=== PATIENT | female | born 1985 | race Caucasian/White ===

== ENCOUNTER 2016-09-14 15:25 | Inpatient (IN) ==
--- NOTE | 2016-09-14 16:22 | Emergency Department Note ---
Disposition Clinical Impression: Chest pain Qualifiers: Chest pain type: unspecified Qualified Code(s): R07.9 - Chest pain, unspecified Depression Qualifiers: Depression Type: unspecified Qualified Code(s): F32.9 - Major depressive disorder, single episode, unspecified Disposition: Still a Patient Condition: Good Referrals: Kristen Lawler CNP [Primary Care Provider] - Forms: ED Satisfaction Letter Chest Pain HPI - General Chief Complaint: ED Chest Pain Stated Complaint: "I'm dying" CP Time Seen by Provider: 09/14/16 15:50 Source: patient Mode of arrival: ambulatory Limitations: no limitations Vital Signs Reviewed: Yes Nursing Notes Reviewed: Yes - History of Present Illness HPI Narrative: 31-year-old female comes in complaining of chest pain arm pain and some tingling since yesterday. Patient states she does have a family history she does smoke cigarettes. Patient states that she is not hypertensive not diabetic and no high cholesterol. Pt complaint: chest pain Onset (ago): [employer] Duration: intermittent Onset: during rest, during exertion Pain Location: substernal, left chest Severity scale (1-10): 3 Quality: tightness, aching Pain Radiation: LUE Improves with: nothing Worsens with: nothing Associated symptoms: Reports: nausea, other (Near syncope) - Related Data Previous Rx's Medication Instructions Recorded Acyclovir 1 appl TP 5XD #15 g 06/07/16 Acyclovir [Zovirax] 800 mg PO 5XD #35 tablet 06/07/16 Azithromycin [Azithromycin 6-Tab 250 mg PO DAILY #6 tab 06/07/16 Pack] Promethazine/Dextromethorphan 5 ml PO Q4H PRN #120 ml 06/07/16 [Promethazine-Dm Syrup] Benzonatate [Tessalon] 200 mg PO TID PRN #30 capsule 08/16/16 Ibuprofen [Motrin] 800 mg PO Q8HR PRN #30 tablet 08/16/16 Sulfamethoxazole/Trimeth DS 1 each PO BID #14 tablet 08/16/16 [Bactrim DS] Fluconazole [Diflucan] 150 mg PO DAILY #1 tab 08/27/16 Benzonatate [Tessalon] 200 mg PO TID PRN #20 capsule 09/01/16 Cefdinir [Omnicef] 300 mg PO BID 10 Days 09/01/16 Ibuprofen [Motrin] 800 mg PO Q8HR PRN #20 tablet 09/01/16 MetroNIDAZOLE [Flagyl] 500 mg PO BID #14 tablet 09/01/16 Hydralazine HCl 50 mg PO QID PRN 14 Days 09/14/16 Allergies Allergy/AdvReac Type Severity Reaction Status Date / Time No Known Allergies Allergy Verified 02/25/15 11:21 All systems ED: reviewed and negative except as stated. Constitutional: Denies: fever, chills, weakness, weight change Eyes: Denies: eye pain, eye discharge, vision change ENT ED: Denies: ear pain, throat pain, dental pain, hearing loss, epistaxis, congestion, dysphagia Cardiovascular: Reports: chest pain. Denies: palpitations, dyspnea on exertion , edema, syncope Respiratory: Denies: cough, dyspnea, wheezes, hemoptysis, stridor Gastrointestinal: Denies: abdominal pain, nausea, vomiting, diarrhea, constipation, hematemesis, melena, hematochezia Genitourinary: Denies: dysuria, frequency, hematuria, discharge Musculoskeletal: Reports: arthralgia. Denies: back pain, neck pain, myalgia Integumentary: Denies: rash, abrasion, lesions Neurological: Denies: headache, weakness, numbness, paresthesias, confusion, abnormal gait, vertigo Psychiatric: Denies: anxiety, depression, suicidal thoughts, homicidal thoughts , auditory hallucinations, visual hallucinations Endocrine: Denies: fatigue Hematological/Lymphatic: Denies: easy bleeding, easy bruising Allergic/Immunologic: Denies: facial swelling, urticaria Chest Pain PMH - Past Medical History Medical history: Reports: seizures Surgical history: Reports: non-contributory Psychiatric history: Reports: no psych history - Social History Smoking Status: Current every day smoker Alcohol use: Reports: occasionally Drug use: Reports: none Physical Exam - General Limitations: no limitations General appearance: alert - Head Head exam: atraumatic, normocephalic, normal inspection - Eye Eye exam: Present: normal appearance, PERRL, EOMI - ENT ENT exam: normal exam - Neck Neck exam: Present: normal inspection, full ROM, trachea midline - Chest Chest inspection: Present: normal inspection, symmetric chest wall rise - Respiratory Respiratory exam: Present: normal lung sounds bilaterally - Cardiovascular Cardiovascular exam: Present: regular rate, normal rhythm, normal heart sounds - Abdominal Exam Abdominal exam: Present: soft, Non-Tender. Absent: tenderness, distention, guarding, rebound, rigidity - Extremities Exam Extremities exam: Present: normal inspection, full ROM. Absent: tenderness, pedal edema - Expanded Lower Extremity Exam Neurovascular/Tendon exam: Absent: motor deficit, sensory deficit, tendon deficit Gait: observed and normal - Back Exam Back exam: Present: normal inspection, full ROM. Absent: tenderness - Neurological Exam Neurological exam: Present: alert, oriented X3 - Psychiatric Psychiatric exam: Present: normal affect, normal mood - Skin Skin exam: Present: warm, dry, intact, normal color Course - Reevaluation(s) Reevaluation #1: 31-year-old was discussing findings her EKG did show T-wave inversion in leads 3 and aVF. This is a change from her previous. Troponin and d-dimer were negative. I discussed observation admission and she declined that she wants to see psychiatry. Patient states she is depressed now and has thought about suicide. Time: 17:24 Vital Signs Temperature 97.5 F L 09/14/16 15:27 Pulse Rate 79 09/14/16 15:27 Respiratory Rate 16 09/14/16 15:27 Blood Pressure 112/75 09/14/16 15:27 O2 Sat by Pulse Oximetry 95 09/14/16 15:27 Temperature 97.5 F L 09/14/16 15:27 Pulse Rate 60 09/14/16 17:00 Respiratory Rate 18 09/14/16 17:00 Blood Pressure 107/57 09/14/16 17:00 O2 Sat by Pulse Oximetry 97 09/14/16 17:00 Oxygen Delivery Oxygen Delivery Room Air Chest Pain - Lab Data Result diagrams: 09/14/16 16:46 09/14/16 16:46 Lab Results 09/14/16 09/14/16 09/14/16 Range/Units 16:30 16:46 16:46 WBC (4.3-11.1) K/mcL RBC (3.82-4.97) M/mcL Hgb (11.5-15.4) g/dL Hct (35.3-44.9) % MCV (83.0-100.0) fL MCH (28.0-33.3) pg MCHC (31.6-35.5) g/dL RDW (11.5-14.5) % Plt Count (140-400) K/mcL MPV (9.4-12.4) fL Immature Gran % (0-4) % Seg Neutrophils % % Lymphocytes % % Monocytes % % Eosinophils % % Basophils % % Neutrophils # (1.6-8.9) K/mcL Lymphocytes # (0.6-4.6) K/mcL Monocytes # (0.0-1.3) K/mcL Eosinophils # (0.0-0.6) K/mcL Basophils # (0.0-0.2) K/mcL PT 11.1 (9.4-12.1) Seconds INR 1.0 APTT 31.4 (26.0-36.0) Seconds D-Dimer < 215 (0-500) ng/mLFEU Sodium (136-145) mEq/L Potassium (3.5-4.5) mEq/L Chloride (98-109) mEq/L Carbon Dioxide (19-29) mEq/L BUN (7-20) mg/dL Creatinine (0.57-1.11) mg/dL Est GFR ( Amer) (> 60) Est GFR (Non-Af Amer) (> 60) BUN/Creatinine Ratio (6-26) Glucose (70-99) mg/dL Calculated Osmolality (280-300) Calcium (8.6-10.8) mg/dL Troponin I (0-0.03) ng/mL B-Natriuretic Peptide 77 (0-100) pg/mL Urine Opiates Screen Negative (Idrzdi=381) ng/mL Ur Barbiturates Screen Negative (Gnaxxy=551) ng/mL Ur Phencyclidine Scrn Negative (Cutoff=25) ng/mL Ur Amphetamines Screen Negative (Ldxsmd=9616) ng/mL U Benzodiazepines Scrn Positive H (Rgalhu=343) ng/mL Urine Cocaine Screen Negative (Cutoff= 300) ng/mL U Marijuana (THC) Screen Negative (Cutoff = 50) ng/mL Ethyl Alcohol (0-10) mg/dL 09/14/16 09/14/16 09/14/16 Range/Units 16:46 16:46 16:46 WBC 4.9 (4.3-11.1) K/mcL RBC 3.96 (3.82-4.97) M/mcL Hgb 11.3 L (11.5-15.4) g/dL Hct 34.8 L (35.3-44.9) % MCV 87.9 (83.0-100.0) fL MCH 28.5 (28.0-33.3) pg MCHC 32.5 (31.6-35.5) g/dL RDW 14.7 H (11.5-14.5) % Plt Count 177 (140-400) K/mcL MPV 11.3 (9.4-12.4) fL Immature Gran % 0.2 (0-4) % Seg Neutrophils % 51.4 % Lymphocytes % 36.6 % Monocytes % 6.7 % Eosinophils % 4.9 % Basophils % 0.2 % Neutrophils # 2.5 (1.6-8.9) K/mcL Lymphocytes # 1.8 (0.6-4.6) K/mcL Monocytes # 0.3 (0.0-1.3) K/mcL Eosinophils # 0.2 (0.0-0.6) K/mcL Basophils # 0.0 (0.0-0.2) K/mcL PT (9.4-12.1) Seconds INR APTT (26.0-36.0) Seconds D-Dimer (0-500) ng/mLFEU Sodium 137 (136-145) mEq/L Potassium 4.1 (3.5-4.5) mEq/L Chloride 107 (98-109) mEq/L Carbon Dioxide 25 (19-29) mEq/L BUN 6 L (7-20) mg/dL Creatinine 0.85 (0.57-1.11) mg/dL Est GFR ( Amer) > 60 (> 60) Est GFR (Non-Af Amer) > 60 (> 60) BUN/Creatinine Ratio 7 (6-26) Glucose 118 H (70-99) mg/dL Calculated Osmolality 283 (280-300) Calcium 8.8 (8.6-10.8) mg/dL Troponin I 0.00 (0-0.03) ng/mL B-Natriuretic Peptide (0-100) pg/mL Urine Opiates Screen (Audhkd=227) ng/mL Ur Barbiturates Screen (Whjrme=525) ng/mL Ur Phencyclidine Scrn (Cutoff=25) ng/mL Ur Amphetamines Screen (Sxfgcl=3904) ng/mL U Benzodiazepines Scrn (Mydokj=151) ng/mL Urine Cocaine Screen (Cutoff= 300) ng/mL U Marijuana (THC) Screen (Cutoff = 50) ng/mL Ethyl Alcohol < 10 (0-10) mg/dL - Radiology Data Radiology results reviewed: Yes I reviewed the patient's radiology results. Chest X-Ray 09/14/16 16:03 IMPRESSION: Negative chest x-ray. No evidence of acute cardiopulmonary disease. D/ / Talon Reed MD / Talon Reed MD Interpreting Provider: Talon Reed MD - EKG Data EKG attestation: Yes I reviewed and interpreted this EKG. EKG shows normal: sinus rhythm Rate: normal Rhythm: NSR T wave inversions noted in: III, aVF Interpretation: other (New T-wave inversion in leads 3 and aVF) Heart Score - Score History: Moderately Suspicious EKG: Non Specific repolarisation Disturbance Age: Less than 45 Risk Factors: No risk factors known Troponin: Less than normal limit HEART Score Total: 2 S.B.A.R. - S.B.A.R. Recommendation: Recommendation based on pending studies, treatments, or consults S.B.A.R. Report Given to: Dr. Raymond Van S.B.A.RNathan Repor Time: 19:00
[2016-09-14 16:43] LABS: Amphetamine Screen,Urine Negative ng/mL (Cutoff=1000); Barbiturate Screen,Urine Negative ng/mL (Cutoff=200); Benzodiazepines Screen,Urine Positive ng/mL (Cutoff=200); Cannabinoid Screen,Urine Negative ng/mL (Cutoff = 50); Cocaine Screen,Urine Negative ng/mL (Cutoff= 300); Opiate Screen,Urine Negative ng/mL (Cutoff=300); Phencyclidine Screen,Urine Negative ng/mL (Cutoff=25)
[2016-09-14 16:56] LABS: Basophils % 0.2 %; Eosinophils # 0.2 K/mcL (0.0-0.6); Eosinophils % 4.9 %; Hematocrit 34.8 % (35.3-44.9); Hemoglobin 11.3 g/dL (11.5-15.4); Immature Granulocytes % 0.2 % (0-4); Lymphocytes # 1.8 K/mcL (0.6-4.6); Lymphocytes % 36.6 %; Mean Corpuscular HGB Conc 32.5 g/dL (31.6-35.5); Mean Corpuscular Hemoglobin 28.5 pg (28.0-33.3); Mean Corpuscular Volume 87.9 fL (83.0-100.0); Mean Platelet Volume 11.3 fL (9.4-12.4); Monocytes # 0.3 K/mcL (0.0-1.3); Monocytes % 6.7 %; Neutrophils # 2.5 K/mcL (1.6-8.9); Platelet Count 177 K/mcL (140-400); Red Blood Count 3.96 M/mcL (3.82-4.97); Red Cell Distribution Width 14.7 % (11.5-14.5); Segmented Neutrophils % 51.4 %
[2016-09-14 16:58] LABS: Prothrombin Time 11.1 Seconds (9.4-12.1)
[2016-09-14 17:01] LABS: Activated Partial Thrombo Time 31.4 Seconds (26.0-36.0)
[2016-09-14 17:06] LABS: BUN/Creatinine Ratio 7 (6-26); Blood Urea Nitrogen 6 mg/dL (7-20); Calcium 8.8 mg/dL (8.6-10.8); Carbon Dioxide 25 mEq/L (19-29); Chloride 107 mEq/L (98-109); D-Dimer < 215 ng/mLFEU (0-500); Glucose 118 mg/dL (70-99); Osmolality,Calculated 283 (280-300); Potassium 4.1 mEq/L (3.5-4.5); Sodium 137 mEq/L (136-145); eGFR For African Americans > 60 (> 60); eGFR For Non-African Americans > 60 (> 60)
[2016-09-14 18:07] LABS: Ethanol < 10 mg/dL (0-10)
--- NOTE | 2016-09-14 20:42 | Emergency Department Note ---
Disposition Clinical Impression: Suicidal ideation Chest pain Qualifiers: Chest pain type: unspecified Qualified Code(s): R07.9 - Chest pain, unspecified Depression Qualifiers: Depression Type: unspecified Qualified Code(s): F32.9 - Major depressive disorder, single episode, unspecified Disposition: Still a Patient Condition: Good Referrals: Kristen Lawler CNP [Primary Care Provider] - Forms: ED Satisfaction Letter Time of Disposition: 07:00 Chest Pain HPI - General Chief Complaint: ED Chest Pain Stated Complaint: "I'm dying" CP Time Seen by Provider: 09/14/16 15:50 Source: patient Mode of arrival: ambulatory Limitations: no limitations Vital Signs Reviewed: Yes Nursing Notes Reviewed: Yes - History of Present Illness Pain Location: substernal, left chest Severity scale (1-10): 3 Quality: tightness, aching Improves with: nothing Worsens with: nothing Associated symptoms: Reports: nausea, other (Near syncope) - Related Data Previous Rx's Medication Instructions Recorded Acyclovir 1 appl TP 5XD #15 g 06/07/16 Acyclovir [Zovirax] 800 mg PO 5XD #35 tablet 06/07/16 Azithromycin [Azithromycin 6-Tab 250 mg PO DAILY #6 tab 06/07/16 Pack] Promethazine/Dextromethorphan 5 ml PO Q4H PRN #120 ml 06/07/16 [Promethazine-Dm Syrup] Benzonatate [Tessalon] 200 mg PO TID PRN #30 capsule 08/16/16 Ibuprofen [Motrin] 800 mg PO Q8HR PRN #30 tablet 08/16/16 Sulfamethoxazole/Trimeth DS 1 each PO BID #14 tablet 08/16/16 [Bactrim DS] Fluconazole [Diflucan] 150 mg PO DAILY #1 tab 08/27/16 Benzonatate [Tessalon] 200 mg PO TID PRN #20 capsule 09/01/16 Cefdinir [Omnicef] 300 mg PO BID 10 Days 09/01/16 Ibuprofen [Motrin] 800 mg PO Q8HR PRN #20 tablet 09/01/16 MetroNIDAZOLE [Flagyl] 500 mg PO BID #14 tablet 09/01/16 Hydralazine HCl 50 mg PO QID PRN 14 Days 09/14/16 Allergies Allergy/AdvReac Type Severity Reaction Status Date / Time No Known Allergies Allergy Verified 02/25/15 11:21 Constitutional: Denies: fever, chills, weakness, weight change Eyes: Denies: eye pain, eye discharge, vision change ENT ED: Denies: ear pain, throat pain, dental pain, hearing loss, epistaxis, congestion, dysphagia Cardiovascular: Reports: chest pain. Denies: palpitations, dyspnea on exertion , edema, syncope Respiratory: Denies: cough, dyspnea, wheezes, hemoptysis, stridor Gastrointestinal: Denies: abdominal pain, nausea, vomiting, diarrhea, constipation, hematemesis, melena, hematochezia Genitourinary: Denies: dysuria, frequency, hematuria, discharge Musculoskeletal: Reports: arthralgia. Denies: back pain, neck pain, myalgia Integumentary: Denies: rash, abrasion, lesions Neurological: Denies: headache, weakness, numbness, paresthesias, confusion, abnormal gait, vertigo Psychiatric: Denies: anxiety, depression, suicidal thoughts, homicidal thoughts , auditory hallucinations, visual hallucinations Endocrine: Denies: fatigue Hematological/Lymphatic: Denies: easy bleeding, easy bruising Allergic/Immunologic: Denies: facial swelling, urticaria Chest Pain PMH - Past Medical History Medical history: Reports: seizures Surgical history: Reports: non-contributory Psychiatric history: Reports: no psych history - Social History Smoking Status: Current every day smoker Alcohol use: Reports: occasionally Drug use: Reports: none Physical Exam - General Limitations: no limitations General appearance: alert - Head Head exam: atraumatic - Eye Eye exam: Present: normal appearance, PERRL, EOMI - ENT ENT exam: mucous membranes moist - Neck Neck exam: Present: normal inspection, full ROM, trachea midline - Respiratory Respiratory exam: Present: normal lung sounds bilaterally - Cardiovascular Cardiovascular exam: Present: regular rate, normal rhythm, normal heart sounds - Extremities Exam Extremities exam: Present: normal inspection, full ROM. Absent: pedal edema - Neurological Exam Neurological exam: Present: alert, oriented X3 - Psychiatric Psychiatric exam: Present: normal affect, normal mood - Skin Skin exam: Present: warm, dry, intact, normal color Course Course Narrative: Patient was a signout from the day physician, Dr. Reyes, please see his note for any additional details. Patient is a 31-year-old female with past medical history of anxiety, she presented today due to chest pain or shortness of breath. She had an EKG that showed NSR with inverted T waves in leads 3, aVF that are new for the patient. Otherwise, no acute ST elevation or depression. CBC and BMP not concerning. Troponin negative. Chest x-ray negative for any acute cardiopulmonary process. She was offered admission by Dr. Reyes for observation but declined at that time. She then stated that she was suicidal and she thought that this could be due to her "previous medical illnesses. " She has requested to be seen by psychiatry. I reassessed the patient, she is very anxious on exam, has tangential thoughts, cannot stay focused, states that she does not any chest pain or shortness of breath right now but she does have episodic chest pain or shortness of breath and associated numbness and tingling around her mouth and face, feels very anxious when this happens, feels like she is going to . She thinks that it might be due to to her anxiety. When asked if she is suicidal, she will answer the question for me but does admit that she felt earlier that she was suicidal. She does also admit that earlier she declined admission for observation. We will obtain a troponin, since it has been 4 hours past the original troponin. If negative, will have psychiatry evaluate. Patient is not safe going home due to reports of suicidal ideation. Heart regular rate and rhythm, leg exam clear to auscultation. 23:58 seconds troponin negative. Patient has been evaluated by the psychiatric team. They will work on placement due to patient's current anxiety and SI. WIll give ativan per patient request. Waiting on placement. [facility] is trying to place at [facility] due to no beds in Chest X-Ray 09/14/16 16:03 IMPRESSION: Negative chest x-ray. No evidence of acute cardiopulmonary disease. D/ / Talon Reed MD / Talon Reed MD Interpreting Provider: Talon Reed MD Vital Signs Temperature 97.5 F L 09/14/16 15:27 Pulse Rate 79 09/14/16 15:27 Respiratory Rate 16 09/14/16 15:27 Blood Pressure 112/75 09/14/16 15:27 O2 Sat by Pulse Oximetry 95 09/14/16 15:27 Temperature 97.5 F L 09/15/16 01:53 Pulse Rate 59 09/15/16 01:53 Respiratory Rate 16 09/15/16 01:53 Blood Pressure 106/70 09/15/16 01:53 O2 Sat by Pulse Oximetry 96 09/15/16 01:53 Oxygen Delivery Oxygen Delivery Room Air Chest Pain - MDM Narrative Medical decision making narrative: Patient was a signout from the day physician, Dr. Reyes, please see his note for any additional details. Patient is a 31-year-old female with past medical history of anxiety, she presented today due to chest pain or shortness of breath. She had an EKG that showed NSR with inverted T waves in leads 3, aVF that are new for the patient. Otherwise, no acute ST elevation or depression. CBC and BMP not concerning. Troponin negative. Chest x-ray negative for any acute cardiopulmonary process. She was offered admission by Dr. Reyes for observation but declined at that time. She then stated that she was suicidal and she thought that this could be due to her "previous medical illnesses. " She has requested to be seen by psychiatry. I reassessed the patient, she is very anxious on exam, has tangential thoughts, cannot stay focused, states that she does not any chest pain or shortness of breath right now but she does have episodic chest pain or shortness of breath and associated numbness and tingling around her mouth and face, feels very anxious when this happens, feels like she is going to . She thinks that it might be due to to her anxiety. When asked if she is suicidal, she will answer the question for me but does admit that she felt earlier that she was suicidal. She does also admit that earlier she declined admission for observation. We will obtain a troponin, since it has been 4 hours past the original troponin. If negative, will have psychiatry evaluate. Patient is not safe going home due to reports of suicidal ideation. Heart regular rate and rhythm, leg exam clear to auscultation. 23:58 seconds troponin negative. Patient has been evaluated by the psychiatric team. They will work on placement due to patient's current anxiety and SI. WIll give ativan per patient request. Waiting on placement. [facility] is trying to place at [facility] due to no beds in 1A - Medical Records Medical records reviewed: Yes I reviewed the patient's medical records. - Lab Data Lab results reviewed: Yes I reviewed the patient's lab results. Result diagrams: 09/14/16 16:46 09/14/16 16:46 Lab Results 09/14/16 09/14/16 09/14/16 Range/Units 16:30 16:46 16:46 WBC (4.3-11.1) K/mcL RBC (3.82-4.97) M/mcL Hgb (11.5-15.4) g/dL Hct (35.3-44.9) % MCV (83.0-100.0) fL MCH (28.0-33.3) pg MCHC (31.6-35.5) g/dL RDW (11.5-14.5) % Plt Count (140-400) K/mcL MPV (9.4-12.4) fL Immature Gran % (0-4) % Seg Neutrophils % % Lymphocytes % % Monocytes % % Eosinophils % % Basophils % % Neutrophils # (1.6-8.9) K/mcL Lymphocytes # (0.6-4.6) K/mcL Monocytes # (0.0-1.3) K/mcL Eosinophils # (0.0-0.6) K/mcL Basophils # (0.0-0.2) K/mcL PT 11.1 (9.4-12.1) Seconds INR 1.0 APTT 31.4 (26.0-36.0) Seconds D-Dimer < 215 (0-500) ng/mLFEU Sodium (136-145) mEq/L Potassium (3.5-4.5) mEq/L Chloride (98-109) mEq/L Carbon Dioxide (19-29) mEq/L BUN (7-20) mg/dL Creatinine (0.57-1.11) mg/dL Est GFR ( Amer) (> 60) Est GFR (Non-Af Amer) (> 60) BUN/Creatinine Ratio (6-26) Glucose (70-99) mg/dL Calculated Osmolality (280-300) Calcium (8.6-10.8) mg/dL Troponin I (0-0.03) ng/mL B-Natriuretic Peptide 77 (0-100) pg/mL Urine Opiates Screen Negative (Eqkjyh=822) ng/mL Ur Barbiturates Screen Negative (Tnabow=869) ng/mL Ur Phencyclidine Scrn Negative (Cutoff=25) ng/mL Ur Amphetamines Screen Negative (Cxhzjo=2813) ng/mL U Benzodiazepines Scrn Positive H (Svywys=082) ng/mL Urine Cocaine Screen Negative (Cutoff= 300) ng/mL U Marijuana (THC) Screen Negative (Cutoff = 50) ng/mL Ethyl Alcohol (0-10) mg/dL 09/14/16 09/14/16 09/14/16 Range/Units 16:46 16:46 16:46 WBC 4.9 (4.3-11.1) K/mcL RBC 3.96 (3.82-4.97) M/mcL Hgb 11.3 L (11.5-15.4) g/dL Hct 34.8 L (35.3-44.9) % MCV 87.9 (83.0-100.0) fL MCH 28.5 (28.0-33.3) pg MCHC 32.5 (31.6-35.5) g/dL RDW 14.7 H (11.5-14.5) % Plt Count 177 (140-400) K/mcL MPV 11.3 (9.4-12.4) fL Immature Gran % 0.2 (0-4) % Seg Neutrophils % 51.4 % Lymphocytes % 36.6 % Monocytes % 6.7 % Eosinophils % 4.9 % Basophils % 0.2 % Neutrophils # 2.5 (1.6-8.9) K/mcL Lymphocytes # 1.8 (0.6-4.6) K/mcL Monocytes # 0.3 (0.0-1.3) K/mcL Eosinophils # 0.2 (0.0-0.6) K/mcL Basophils # 0.0 (0.0-0.2) K/mcL PT (9.4-12.1) Seconds INR APTT (26.0-36.0) Seconds D-Dimer (0-500) ng/mLFEU Sodium 137 (136-145) mEq/L Potassium 4.1 (3.5-4.5) mEq/L Chloride 107 (98-109) mEq/L Carbon Dioxide 25 (19-29) mEq/L BUN 6 L (7-20) mg/dL Creatinine 0.85 (0.57-1.11) mg/dL Est GFR ( Amer) > 60 (> 60) Est GFR (Non-Af Amer) > 60 (> 60) BUN/Creatinine Ratio 7 (6-26) Glucose 118 H (70-99) mg/dL Calculated Osmolality 283 (280-300) Calcium 8.8 (8.6-10.8) mg/dL Troponin I 0.00 (0-0.03) ng/mL B-Natriuretic Peptide (0-100) pg/mL Urine Opiates Screen (Etatpp=239) ng/mL Ur Barbiturates Screen (Bgvcld=902) ng/mL Ur Phencyclidine Scrn (Cutoff=25) ng/mL Ur Amphetamines Screen (Qygeic=8036) ng/mL U Benzodiazepines Scrn (Lyqzva=197) ng/mL Urine Cocaine Screen (Cutoff= 300) ng/mL U Marijuana (THC) Screen (Cutoff = 50) ng/mL Ethyl Alcohol < 10 (0-10) mg/dL 09/14/ Range/Units 21:01 WBC (4.3-11.1) K/mcL RBC (3.82-4.97) M/mcL Hgb (11.5-15.4) g/dL Hct (35.3-44.9) % MCV (83.0-100.0) fL MCH (28.0-33.3) pg MCHC (31.6-35.5) g/dL RDW (11.5-14.5) % Plt Count (140-400) K/mcL MPV (9.4-12.4) fL Immature Gran % (0-4) % Seg Neutrophils % % Lymphocytes % % Monocytes % % Eosinophils % % Basophils % % Neutrophils # (1.6-8.9) K/mcL Lymphocytes # (0.6-4.6) K/mcL Monocytes # (0.0-1.3) K/mcL Eosinophils # (0.0-0.6) K/mcL Basophils # (0.0-0.2) K/mcL PT (9.4-12.1) Seconds INR APTT (26.0-36.0) Seconds D-Dimer (0-500) ng/mLFEU Sodium (136-145) mEq/L Potassium (3.5-4.5) mEq/L Chloride (98-109) mEq/L Carbon Dioxide (19-29) mEq/L BUN (7-20) mg/dL Creatinine (0.57-1.11) mg/dL Est GFR ( Amer) (> 60) Est GFR (Non-Af Amer) (> 60) BUN/Creatinine Ratio (6-26) Glucose (70-99) mg/dL Calculated Osmolality (280-300) Calcium (8.6-10.8) mg/dL Troponin I 0.00 (0-0.03) ng/mL B-Natriuretic Peptide (0-100) pg/mL Urine Opiates Screen (Deoivl=921) ng/mL Ur Barbiturates Screen (Hxzezj=956) ng/mL Ur Phencyclidine Scrn (Cutoff=25) ng/mL Ur Amphetamines Screen (Mupeyf=5187) ng/mL U Benzodiazepines Scrn (Qnqqnb=916) ng/mL Urine Cocaine Screen (Cutoff= 300) ng/mL U Marijuana (THC) Screen (Cutoff = 50) ng/mL Ethyl Alcohol (0-10) mg/dL - Radiology Data Radiology results reviewed: Yes I reviewed the patient's radiology results. Chest X-Ray 09/14/16 16:03 IMPRESSION: Negative chest x-ray. No evidence of acute cardiopulmonary disease. D/ / Talon Reed MD / Talon Reed MD Interpreting Provider: Talon Reed MD - EKG Data EKG attestation: Yes I reviewed and interpreted this EKG. S.B.A.R. - S.B.A.RNathan Situation: Demographics, MOA Background: Presenting Complaint, Relevant PMH, Meds, & Allergies Assessment: Vital Signs, Course and respsone to treatment, Exam Concerns, Patient/Family Expectation, Pertinant Lab Results, Outstanding Labs Recommendation: Barrier(s) to disposition, Recommendation based on pending studies, treatments, or consults S.B.A.RNathan Report Given to: Dr. Edis Garcia Repor Time: 07:00 Attestation Statement - Attestation Attestation: I personally interviewed and examined this patient and my medical decision- making was reviewed with the ED Resident Physician, Dr. Oneill. I agree with the documented findings, disposition and treatment plan as described except to the extent set forth below. Patient is a 31-year-old white female who presented to the emergency department on the shift prior was a sign out by Dr. Reyes for chest pain and suicidal ideation. Patient had a negative workup with one negative troponin prior to our taking over the case and was awaiting consult by [facility]. The psych nurse came with concern as the patient was complaining of ongoing chest pain while she was starting to do her evaluation. Upon review of the original document by Dr. Reyes says that he offered her admission and at the time had refused and this was followed by her complaints of suicidal ideation. Patient states that she has been very anxious she is hyperventilating at bedside she is having trouble focusing on physical complaints and currently does not reply to being asked about whether or not she is feeling suicidal. EKG was repeated which showed no acute change compared to initial. We decided to repeat a troponin as patient is very low risk for ACS and will rule her out with a second troponin evaluation. Follow-up troponin was negative. Repeat EKG showed normal sinus rhythm to sinus bradycardia at [address] or T-wave changes are appreciated. [facility] was able to do a complete and assessment and plans to admit the patient for further evaluation and treatment of suicidal ideation. Patient remains hemodynamically stable at this time and on reevaluation she denies any current chest pain or discomfort.
[2016-09-14] MEDS ORDERED: *HR* LORazepam 1 MG TABLET PO ONE (23:39)
[2016-09-15] MEDS ORDERED: *HR* LORazepam 1 MG TABLET PO ONE ×2 (07:39→15:21)
--- NOTE | 2016-09-15 07:43 | Emergency Department Note ---
Disposition Clinical Impression: Suicidal ideation Chest pain Qualifiers: Chest pain type: unspecified Qualified Code(s): R07.9 - Chest pain, unspecified Depression Qualifiers: Depression Type: unspecified Qualified Code(s): F32.9 - Major depressive disorder, single episode, unspecified Disposition: Transfer Psychiatric Hosp Condition: Good Referrals: Kristen Lawler CNP [Primary Care Provider] - Forms: ED Satisfaction Letter General Adult HPI - General Chief complaint: ED Chest Pain Stated complaint: "I'm dying" CP Time Seen by Provider: 09/14/16 15:50 Source: patient Mode of arrival: ambulatory Limitations: no limitations Nursing Notes Reviewed: Yes Vital Signs Reviewed: Yes - History of Present Illness Pain Scale: 3 - Related Data Previous Rx's Medication Instructions Recorded Acyclovir 1 appl TP 5XD #15 g 06/07/16 Acyclovir [Zovirax] 800 mg PO 5XD #35 tablet 06/07/16 Azithromycin [Azithromycin 6-Tab 250 mg PO DAILY #6 tab 06/07/16 Pack] Promethazine/Dextromethorphan 5 ml PO Q4H PRN #120 ml 06/07/16 [Promethazine-Dm Syrup] Benzonatate [Tessalon] 200 mg PO TID PRN #30 capsule 08/16/16 Ibuprofen [Motrin] 800 mg PO Q8HR PRN #30 tablet 08/16/16 Sulfamethoxazole/Trimeth DS 1 each PO BID #14 tablet 08/16/16 [Bactrim DS] Fluconazole [Diflucan] 150 mg PO DAILY #1 tab 08/27/16 Benzonatate [Tessalon] 200 mg PO TID PRN #20 capsule 09/01/16 Cefdinir [Omnicef] 300 mg PO BID 10 Days 09/01/16 Ibuprofen [Motrin] 800 mg PO Q8HR PRN #20 tablet 09/01/16 MetroNIDAZOLE [Flagyl] 500 mg PO BID #14 tablet 09/01/16 Hydralazine HCl 50 mg PO QID PRN 14 Days 09/14/16 Allergies Allergy/AdvReac Type Severity Reaction Status Date / Time No Known Allergies Allergy Verified 02/25/15 11:21 Constitutional: Denies: fever, chills, weakness, weight change Eyes: Denies: eye pain, eye discharge, vision change ENT ED: Denies: ear pain, throat pain, dental pain, hearing loss, epistaxis, congestion, dysphagia Cardiovascular: Reports: chest pain. Denies: palpitations, dyspnea on exertion , edema, syncope Respiratory: Denies: cough, dyspnea, wheezes, hemoptysis, stridor Gastrointestinal: Denies: abdominal pain, nausea, vomiting, diarrhea, constipation, hematemesis, melena, hematochezia Genitourinary: Denies: dysuria, frequency, hematuria, discharge Musculoskeletal: Reports: arthralgia. Denies: back pain, neck pain, myalgia Integumentary: Denies: rash, abrasion, lesions Neurological: Denies: headache, weakness, numbness, paresthesias, confusion, abnormal gait, vertigo Psychiatric: Denies: anxiety, depression, suicidal thoughts, homicidal thoughts , auditory hallucinations, visual hallucinations Endocrine: Denies: fatigue Hematological/Lymphatic: Denies: easy bleeding, easy bruising Allergic/Immunologic: Denies: facial swelling, urticaria Past Medical History - Past Medical History Medical history: Reports: seizures Surgical history: Reports: non-contributory Psychiatric history: Reports: no psych history - Social History Smoking Status: Current every day smoker Smokeless Tobacco Status: No Alcohol use: Reports: occasionally Drug use: Reports: none Physical Exam - General Limitations: no limitations General appearance: alert Course Vital Signs Temperature 97.5 F L 09/14/16 15:27 Pulse Rate 79 09/14/16 15:27 Respiratory Rate 16 09/14/16 15:27 Blood Pressure 112/75 09/14/16 15:27 O2 Sat by Pulse Oximetry 95 09/14/16 15:27 Temperature 97.5 F L 09/15/16 01:53 Pulse Rate 60 09/15/16 13:54 Respiratory Rate 22 09/15/16 13:54 Blood Pressure 104/61 09/15/16 13:54 O2 Sat by Pulse Oximetry 97 09/15/16 13:54 Oxygen Delivery Oxygen Delivery Room Air Medical Decision Making - MDM Narrative Medical decision making narrative: I examined this patient and my medical decision-making was reviewed with the MACHINERY ENGINEER/PA/Advanced Practice Nurse/Resident Physician. I agree with the documented findings, disposition and treatment plan as described except to the extent set forth below. Patient was signed out from the evening ER physician Dr. Raymond Van, patient's been cooperative here. Has been advised by [facility], they are waiting placement. We ordered her breakfast this morning she has been cooperative so far. Told if she needs to let us know. She is under a 72 hour hold. Is awaiting transfer admission. 1525 hrs.: Patient asked for some more Ativan sorted out. [facility] has agreed to accept her for admission. - Lab Data Result diagrams: 09/14/16 16:46 09/14/16 16:46 Lab Results 09/14/16 09/14/16 09/14/16 Range/Units 16:30 16:46 16:46 WBC (4.3-11.1) K/mcL RBC (3.82-4.97) M/mcL Hgb (11.5-15.4) g/dL Hct (35.3-44.9) % MCV (83.0-100.0) fL MCH (28.0-33.3) pg MCHC (31.6-35.5) g/dL RDW (11.5-14.5) % Plt Count (140-400) K/mcL MPV (9.4-12.4) fL Immature Gran % (0-4) % Seg Neutrophils % % Lymphocytes % % Monocytes % % Eosinophils % % Basophils % % Neutrophils # (1.6-8.9) K/mcL Lymphocytes # (0.6-4.6) K/mcL Monocytes # (0.0-1.3) K/mcL Eosinophils # (0.0-0.6) K/mcL Basophils # (0.0-0.2) K/mcL PT 11.1 (9.4-12.1) Seconds INR 1.0 APTT 31.4 (26.0-36.0) Seconds D-Dimer < 215 (0-500) ng/mLFEU Sodium (136-145) mEq/L Potassium (3.5-4.5) mEq/L Chloride (98-109) mEq/L Carbon Dioxide (19-29) mEq/L BUN (7-20) mg/dL Creatinine (0.57-1.11) mg/dL Est GFR ( Amer) (> 60) Est GFR (Non-Af Amer) (> 60) BUN/Creatinine Ratio (6-26) Glucose (70-99) mg/dL Calculated Osmolality (280-300) Calcium (8.6-10.8) mg/dL Troponin I (0-0.03) ng/mL B-Natriuretic Peptide 77 (0-100) pg/mL Urine Opiates Screen Negative (Qjldtc=230) ng/mL Ur Barbiturates Screen Negative (Lzuout=973) ng/mL Ur Phencyclidine Scrn Negative (Cutoff=25) ng/mL Ur Amphetamines Screen Negative (Rznkoh=7972) ng/mL U Benzodiazepines Scrn Positive H (Dduzre=806) ng/mL Urine Cocaine Screen Negative (Cutoff= 300) ng/mL U Marijuana (THC) Screen Negative (Cutoff = 50) ng/mL Ethyl Alcohol (0-10) mg/dL 09/14/16 09/14/16 09/14/16 Range/Units 16:46 16:46 16:46 WBC 4.9 (4.3-11.1) K/mcL RBC 3.96 (3.82-4.97) M/mcL Hgb 11.3 L (11.5-15.4) g/dL Hct 34.8 L (35.3-44.9) % MCV 87.9 (83.0-100.0) fL MCH 28.5 (28.0-33.3) pg MCHC 32.5 (31.6-35.5) g/dL RDW 14.7 H (11.5-14.5) % Plt Count 177 (140-400) K/mcL MPV 11.3 (9.4-12.4) fL Immature Gran % 0.2 (0-4) % Seg Neutrophils % 51.4 % Lymphocytes % 36.6 % Monocytes % 6.7 % Eosinophils % 4.9 % Basophils % 0.2 % Neutrophils # 2.5 (1.6-8.9) K/mcL Lymphocytes # 1.8 (0.6-4.6) K/mcL Monocytes # 0.3 (0.0-1.3) K/mcL Eosinophils # 0.2 (0.0-0.6) K/mcL Basophils # 0.0 (0.0-0.2) K/mcL PT (9.4-12.1) Seconds INR APTT (26.0-36.0) Seconds D-Dimer (0-500) ng/mLFEU Sodium 137 (136-145) mEq/L Potassium 4.1 (3.5-4.5) mEq/L Chloride 107 (98-109) mEq/L Carbon Dioxide 25 (19-29) mEq/L BUN 6 L (7-20) mg/dL Creatinine 0.85 (0.57-1.11) mg/dL Est GFR ( Amer) > 60 (> 60) Est GFR (Non-Af Amer) > 60 (> 60) BUN/Creatinine Ratio 7 (6-26) Glucose 118 H (70-99) mg/dL Calculated Osmolality 283 (280-300) Calcium 8.8 (8.6-10.8) mg/dL Troponin I 0.00 (0-0.03) ng/mL B-Natriuretic Peptide (0-100) pg/mL Urine Opiates Screen (Hepttr=635) ng/mL Ur Barbiturates Screen (Tqcdle=990) ng/mL Ur Phencyclidine Scrn (Cutoff=25) ng/mL Ur Amphetamines Screen (Ydpeqi=5235) ng/mL U Benzodiazepines Scrn (Wlhdfm=315) ng/mL Urine Cocaine Screen (Cutoff= 300) ng/mL U Marijuana (THC) Screen (Cutoff = 50) ng/mL Ethyl Alcohol < 10 (0-10) mg/dL 09/14/16 Range/Units 21:01 WBC (4.3-11.1) K/mcL RBC (3.82-4.97) M/mcL Hgb (11.5-15.4) g/dL Hct (35.3-44.9) % MCV (83.0-100.0) fL MCH (28.0-33.3) pg MCHC (31.6-35.5) g/dL RDW (11.5-14.5) % Plt Count (140-400) K/mcL MPV (9.4-12.4) fL Immature Gran % (0-4) % Seg Neutrophils % % Lymphocytes % % Monocytes % % Eosinophils % % Basophils % % Neutrophils # (1.6-8.9) K/mcL Lymphocytes # (0.6-4.6) K/mcL Monocytes # (0.0-1.3) K/mcL Eosinophils # (0.0-0.6) K/mcL Basophils # (0.0-0.2) K/mcL PT (9.4-12.1) Seconds INR APTT (26.0-36.0) Seconds D-Dimer (0-500) ng/mLFEU Sodium (136-145) mEq/L Potassium (3.5-4.5) mEq/L Chloride (98-109) mEq/L Carbon Dioxide (19-29) mEq/L BUN (7-20) mg/dL Creatinine (0.57-1.11) mg/dL Est GFR ( Amer) (> 60) Est GFR (Non-Af Amer) (> 60) BUN/Creatinine Ratio (6-26) Glucose (70-99) mg/dL Calculated Osmolality (280-300) Calcium (8.6-10.8) mg/dL Troponin I 0.00 (0-0.03) ng/mL B-Natriuretic Peptide (0-100) pg/mL Urine Opiates Screen (Zporji=379) ng/mL Ur Barbiturates Screen (Nntevh=977) ng/mL Ur Phencyclidine Scrn (Cutoff=25) ng/mL Ur Amphetamines Screen (Awhkye=0562) ng/mL U Benzodiazepines Scrn (Jwszru=669) ng/mL Urine Cocaine Screen (Cutoff= 300) ng/mL U Marijuana (THC) Screen (Cutoff = 50) ng/mL Ethyl Alcohol (0-10) mg/dL
--- NOTE | 2016-09-15 22:07 | Electrocardiograph Report ---
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
--- NOTE | 2016-09-15 22:11 | Electrocardiograph Report ---
[facility] Test Date: 2016-09-15 Pat Name: Estelle Worthy Department: 104 Room: 1A51 Gender: F Medication Reconciliation Technician: NICKY : 1985 Requested By: Ry Oneill Order Number: [id number] Reading MD: Rafal Arriaza MD Measurements Intervals [place] Rate: 52 P: 56 [place]: 137 QRS: 61 QRSD: 88 T: 30 QT: 490 QTc: 469 Interpretive Statements SINUS BRADYCARDIA Electronically Signed On 09-15-2016 22:09:26 EDT by Rafal Arriaza MD
[2016-09-15] MEDS ORDERED: hydrOXYzine pamoate 25 MG CAPSULE PO PRN (22:42)
[2016-09-15] MEDS ORDERED: *HR* LORazepam 2 MG/ML VIAL IM PRN (22:42)
[2016-09-15] MEDS ORDERED: traZODone 50 MG TABLET PO PRN (22:42)
[2016-09-15] MEDS ORDERED: MOM Conc 10 ML UD.LIQ PO PRN (22:42)
[2016-09-15] MEDS ORDERED: Haloperidol Lactate 5 MG/ML VIAL IM PRN (22:42)
[2016-09-15] MEDS ORDERED: Mag Hydrox/Al Hydrox/Simeth 30 ML UDC PO PRN (22:42)
[2016-09-16] MEDS: Acetaminophen 325 MG TABLET PO PRN ×2 (01:52→15:18)
[2016-09-16] MEDS: Nicotine 2 MG GUM BC PRN ×4 (01:56→18:27)
[2016-09-16] MEDS: *HR* LORazepam 1 MG TABLET PO PRN ×3 (08:51→23:57)
--- NOTE | 2016-09-16 11:05 | Psychiatry History & Physical ---
Date of Encounter: 09/16/16 Time of Encounter: 10:59 History of Present Illness Patient Stated Chief Complaint: Suicidal ideation Medicare Admission Attestation: For traditional Medicare patients the provided hospital inpatient services are reasonable and necessary and in the case of services not specified as inpatient -only under 42 CFR 419.22 (n), that they are appropriately provided as inpatient services in accordance 42 CFR 412.3. For Critical Access Hospital the patient may reasonably be expected to be discharged or transferred to a hospital within 96 hours after admission to the Critical Access Hospital. Admitted From: Emergency Dept History of Present Illness: Ms. Worthy is a 31 year old female admitted from the emergency room for evaluation of suicidal ideation. Patient presentation to the emergency department was confusing, her chief complaint was chest pain and she was evaluated for chest pain by the EKG and blood work and at some points the plan was to admit her to medical floor, then the presentation changed to suicidal ideation and patient was very vague about any crisis or precipitating factor for having suicidal ideation. Patient has been hospitalized in this unit most recently in February 2009 for diagnosis of mood disorder NOS suicidal ideation and opiate dependence. Patient did not follow-up with mental health's for the past 2 or 3 years and has been using medication prescribed by the family physician including Celexa and Ambien. 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 She is vague about her stressor but she mentioned financial problems. Patient also has a diagnosis of seizure and not taking any medication for this and did not follow-up with her neurologist, her last seizure reported last year. She smokes half a pack a day cigarettes and consumes a large amount of caffeine daily and denies any use of alcohol or marijuana. Past Med Surg Social Fam HX - Past Medical History Medical history: seizures - Past Psychiatric History Psychiatric history: Reports: anxiety, depression, previous psychiatric hospitalization Past psychiatric history details: Last admission was in 03/04/2009 for mood disorder and opiate dependence Family psychiatric history: Unknown Family History of Suicide: Unknown - Past Surgical History Surgical History: non-contributory - Social History Smoking Status: Current every day smoker Smokeless Tobacco Status: No Alcohol use: occasionally Drug use: none - Family History Mother Hx Family Medical Disorders: No Father Hx Family Cardiac Disorders: Yes (heart disease) Medications & Allergies Citalopram [CeleXA] 20 mg PO DAILY 09/15/16 [History] Zolpidem [Ambien] 10 mg PO HS 09/15/16 [History] Allergies No Known Allergies Allergy (Verified 02/25/15 11:21) Review of Systems Psychiatric: Reports: depression, anxiety, suicidal ideation Mental Status Exam Patient orientation: Yes Person, Yes Time, Yes Place Level of alertness: Alert, Sedated Patient appearance: Appropriate, Unkempt Behavior: calm, cooperative, distractible, withdrawn Psychomotor activity: Slowed Eye contact: Minimal Contact Mood description: Depressed, Anxious Affect description: constricted, blunted Speech pattern: Slowed, Delayed Speech volume: Normal Thought process: Linear, Goal Oriented Thought content: Yes Suicidal ideation, No Homicidal ideation, No Overt delusions Perceptual disturbances: No Auditory hallucinations, No Visual hallucinations Attention span: Capable of Focused Attention Memory description: Grossly Intact Patient reliability: Questionable Historian Intelligence estimate: Average Judgment: Limited Insight: Partial Results - Vital Signs Vital signs: Temp Pulse Resp BP Pulse Ox 97.4 F L 69 16 103/99 97 09/16/16 09:00 09/16/16 09:00 09/16/16 09:00 09/16/16 09:00 09/15/16 13:54 - Labs Labs: Laboratory Last Values WBC 4.9 K/mcL (4.3-11.1) 09/14/16 16:46 RBC 3.96 M/mcL (3.82-4.97) 09/14/16 16:46 Hgb 11.3 g/dL (11.5-15.4) L 09/14/16 16:46 Hct 34.8 % (35.3-44.9) L 09/14/16 16:46 MCV 87.9 fL (83.0-100.0) 09/14/16 16:46 MCH 28.5 pg (28.0-33.3) 09/14/16 16:46 MCHC 32.5 g/dL (31.6-35.5) 09/14/16 16:46 RDW 14.7 % (11.5-14.5) H 09/14/16 16:46 Plt Count 177 K/mcL (140-400) 09/14/16 16:46 MPV 11.3 fL (9.4-12.4) 09/14/16 16:46 Immature Gran % 0.2 % (0-4) 09/14/16 16:46 Seg Neutrophils % 51.4 % 09/14/16 16:46 Lymphocytes % 36.6 % 09/14/16 16:46 Monocytes % 6.7 % 09/14/16 16:46 Eosinophils % 4.9 % 09/14/16 16:46 Basophils % 0.2 % 09/14/16 16:46 Neutrophils # 2.5 K/mcL (1.6-8.9) 09/14/16 16:46 Lymphocytes # 1.8 K/mcL (0.6-4.6) 09/14/16 16:46 Monocytes # 0.3 K/mcL (0.0-1.3) 09/14/16 16:46 Eosinophils # 0.2 K/mcL (0.0-0.6) 09/14/16 16:46 Basophils # 0.0 K/mcL (0.0-0.2) 09/14/16 16:46 PT 11.1 Seconds (9.4-12.1) 09/14/16 16:46 INR 1.0 09/14/16 16:46 APTT 31.4 Seconds (26.0-36.0) 09/14/16 16:46 D-Dimer < 215 ng/mLFEU (0-500) 09/14/16 16:46 Sodium 137 mEq/L (136-145) 09/14/16 16:46 Potassium 4.1 mEq/L (3.5-4.5) 09/14/16 16:46 Chloride 107 mEq/L (98-109) 09/14/16 16:46 Carbon Dioxide 25 mEq/L (19-29) 09/14/16 16:46 BUN 6 mg/dL (7-20) L 09/14/16 16:46 Creatinine 0.85 mg/dL (0.57-1.11) 09/14/16 16:46 Est GFR ( Amer) > 60 (> 60) 09/14/16 16:46 Est GFR (Non-Af Amer) > 60 (> 60) 09/14/16 16:46 BUN/Creatinine Ratio 7 (6-26) 09/14/16 16:46 Glucose 118 mg/dL (70-99) H 04/18/17 16:46 Calculated Osmolality 283 (280-300) 09/14/16 16:46 Calcium 8.8 mg/dL (8.6-10.8) 09/14/16 16:46 Troponin I 0.00 ng/mL (0-0.03) 09/14/16 21:01 B-Natriuretic Peptide 77 pg/mL (0-100) 09/14/16 16:46 Urine Opiates Screen Negative ng/mL (Orkiag=634) 09/14/16 16:30 Ur Barbiturates Screen Negative ng/mL (Achodp=471) 09/14/16 16:30 Ur Phencyclidine Scrn Negative ng/mL (Cutoff=25) 09/14/16 16:30 Ur Amphetamines Screen Negative ng/mL (Ojtwna=7299) 09/14/16 16:30 U Benzodiazepines Scrn Positive ng/mL (Oewnqo=964) H 09/14/16 16:30 Urine Cocaine Screen Negative ng/mL (Cutoff= 300) 09/14/16 16:30 U Marijuana (THC) Screen Negative ng/mL (Cutoff = 50) 09/14/16 16:30 Ethyl Alcohol < 10 mg/dL (0-10) 09/14/16 16:46 Assessment and Plan (1) Depression, major, recurrent, moderate Current visit: Yes Status: Acute Plan: Admit inpatient for safety and stabilization, Close observation, Suicide Precautions per unit protocol, Encourage participation in unit milieu, Group Therapy, Monitor sleep, Monitor appetite Additional Plan: Will restart patient on her home medication and continue to monitor. Risks, benefits, side effects, alternatives discussed w/pt: Yes Patient agreeable to treatment: Yes Estimated Length of Stay (Days): 5
[2016-09-17] MEDS: Nicotine 2 MG GUM BC PRN ×4 (09:16→22:15)
[2016-09-17] MEDS: *HR* LORazepam 1 MG TABLET PO PRN ×3 (09:18→23:30)
[2016-09-17] MEDS: Acetaminophen 325 MG TABLET PO PRN (12:42)
--- NOTE | 2016-09-17 15:52 | Psychiatry Progress Note ---
Date of Encounter: 09/17/16 Time of Encounter: 15:10 Subjective Interval history: Patient is seen for follow-up. Staff reports she is not motivated and continue to be vague and evasive about her symptoms. She denies suicidal ideation. She admits to noncompliance with her medication for seizure and for bipolar. Patient was supposed to be on gabapentin and Lamictal and she stopped taking them without consulting physician. Review of Systems Psychiatric: Reports: depression, anxiety, suicidal ideation Objective: Exam Patient orientation: Yes Person, Yes Time, Yes Place Level of alertness: Alert Patient appearance: Appropriate, Unkempt Behavior: calm, cooperative, distractible Psychomotor activity: Slowed Eye contact: Minimal Contact Mood description: Depressed, Anxious Affect description: congruent with mood, blunted Speech pattern: Normal rate, Normal rhythm, Normal tone, Delayed, Impoverished Speech volume: Normal Thought process: Linear, Goal Oriented Thought content: No Suicidal ideation, No Homicidal ideation, No Overt delusions Perceptual disturbances: No Auditory hallucinations, No Visual hallucinations Judgment: Fair Insight: Partial Results - Vital Signs Vital Signs: Temp Pulse Resp BP Pulse Ox 98.2 F 59 16 107/64 97 09/17/16 09:00 09/17/16 09:00 09/17/16 09:00 09/17/16 09:00 09/15/16 13:54 Assessment and Plan (1) Depression, major, recurrent, moderate Current visit: Yes Status: Acute Plan: Continue hospitalization, Close observation, Suicide Precautions per unit protocol, Encourage participation in unit milieu, Group Therapy, Monitor sleep, Monitor appetite Additional Plan: We will start patient on gabapentin 300 mg twice a day and monitor her response. Benefits and side effects were discussed and she is agreeable. Risks, benefits, side effects, alternatives discussed w/pt: Yes Patient agreeable to treatment: Yes Consult Discharge Plan - Plan Referrals: [facility] [Outside] - 11/03/16 10:00 am (The above appointment is with Alba Cooper, psychiatric prescriber. Please arrive 30 minutes early for this appointment to complete paperwork. You may contact the office regularly to check for cancellations that may allow you to be seen sooner by the psychiatric prescriber. Office staff will contact you directly to schedule your intake appointment for counseling and case management services. ) Kristen Lawler, SINDHU [Primary Care Provider] - 09/20/16 1:45 pm (The above appointment is with Kristen Lawler.)
[2016-09-17] MEDS: Gabapentin 300 MG CAPSULE PO SCH (20:14)
[2016-09-18] MEDS: Gabapentin 300 MG CAPSULE PO SCH ×2 (08:34→21:19)
[2016-09-18] MEDS: *HR* LORazepam 1 MG TABLET PO PRN ×3 (08:37→17:23)
[2016-09-18] MEDS: Acetaminophen 325 MG TABLET PO PRN ×2 (08:37→16:30)
[2016-09-18] MEDS: Nicotine 2 MG GUM BC PRN ×5 (08:37→21:59)
--- NOTE | 2016-09-18 15:37 | Psychiatry Progress Note ---
Date of Encounter: 09/18/16 Time of Encounter: 14:30 Subjective Interval history: Patient is here for follow-up. Nursing staff reports she is demanding lorazepam frequently for anxiety. I confronted the patient about her dependence on benzodiazepines and I educated her about anxiety and coping skills to help her anxiety as rathrer than depending on medication alone. She reports improvement in her moods stability with gabapentin. Denied any suicidal ideation. She acknowledged her noncompliance with medication and follow-up in the past and plans to make changes. Review of Systems Psychiatric: Reports: depression, anxiety, suicidal ideation Objective: Exam Patient orientation: Yes Person, Yes Time, Yes Place Level of alertness: Alert Patient appearance: Appropriate, Well Groomed Behavior: calm, cooperative Psychomotor activity: Normal Eye contact: Maintains Eye Contact Mood description: Euthymic/stable Affect description: congruent with mood, full range Speech pattern: Normal rate, Normal rhythm, Normal tone Speech volume: Normal Thought process: Linear, Goal Oriented Thought content: No Suicidal ideation, No Homicidal ideation, No Overt delusions Perceptual disturbances: No Auditory hallucinations, No Visual hallucinations Judgment: Fair Insight: Partial Results - Vital Signs Vital Signs: Temp Pulse Resp BP Pulse Ox 97.2 F L 61 16 113/72 97 09/18/16 09:00 09/18/16 09:00 09/18/16 09:00 09/18/16 09:00 09/15/16 13:54 Assessment and Plan (1) Depression, major, recurrent, moderate Current visit: Yes Status: Acute Plan: Continue hospitalization, Close observation, Suicide Precautions per unit protocol, Encourage participation in unit milieu, Group Therapy, Monitor sleep, Monitor appetite Risks, benefits, side effects, alternatives discussed w/pt: Yes Patient agreeable to treatment: Yes Consult Discharge Plan - Plan Referrals: [facility] [Outside] - 11/03/16 10:00 am (The above appointment is with Alba Cooper, psychiatric prescriber. Please arrive 30 minutes early for this appointment to complete paperwork. You may contact the office regularly to check for cancellations that may allow you to be seen sooner by the psychiatric prescriber. Office staff will contact you directly to schedule your intake appointment for counseling and case management services. ) Kristen Lawler, SINDHU [Primary Care Provider] - 09/20/16 1:45 pm (The above appointment is with Kristen Lawler.)
[2016-09-19] MEDS: Gabapentin 300 MG CAPSULE PO SCH (08:40)
[2016-09-19] MEDS: Nicotine 2 MG GUM BC PRN ×2 (08:40→12:14)
[2016-09-19 12:09] VITALS: BP 117/72
[2016-09-19] MEDS: *HR* LORazepam 1 MG TABLET PO PRN (12:09)
[2016-09-19] MEDS: Acetaminophen 325 MG TABLET PO PRN (14:24)
--- NOTE | 2016-09-19 14:50 | Discharge Summary ---
Date of Encounter: 09/19/16 Time of Encounter: 14:45 Diagnosis - Discharge Diagnosis (1) Depression, major, recurrent, moderate Status: Acute Medications - Discharge Medications Prescriptions: Citalopram [CeleXA] 20 mg PO DAILY #30 tablet Gabapentin [Neurontin] 300 mg PO QAM AND QHS #60 capsule Zolpidem [Ambien] 10 mg PO HS #20 tablet NS Citalopram [CeleXA] 20 mg PO DAILY #30 tablet 09/19/16 [Rx] Gabapentin [Neurontin] 300 mg PO QAM AND QHS #60 capsule 09/19/16 [Rx] Zolpidem [Ambien] 10 mg PO HS #20 tablet NS 09/19/16 [Rx] Allergies No Known Allergies Allergy (Verified 02/25/15 11:21) Provider Date of admission: 09/16/16 02:29 Primary care physician: Kristen Lawler CNP Discharging clinician: Josias Veliz Assessment and Plan - Patient/Caregiver Discharge Instructions Activity: resume usual activities as tolerated Diet: regular diet - Follow up Plan Follow up with: [facility] [Outside] - 11/03/16 10:00 am (The above appointment is with Alba Cooper psychiatric prescriber. Please arrive 30 minutes early for this appointment to complete paperwork. You may contact the office regularly to check for cancellations that may allow you to be seen sooner by the psychiatric prescriber. Office staff will contact you directly to schedule your intake appointment for counseling and case management services. ) Kristen Lawler CNP [Primary Care Provider] - 09/20/16 1:45 pm (The above appointment is with Kristen Lawler.) Functional capacity at discharge: independent ambulation Overall status at discharge: Stable Disposition: Home, Self-Care Hospital Course Hospital course: Ms. Worthy is a 31 year old female admitted from the emergency room for suicidal ideation and noncompliance with her medication. For details of admission please see H&P On the units patient wants wants was uncooperative and difficult to evaluate its , she was vague and evasive. Noncompliance was a major issue in her decompensation. Patient was noncompliant with psychiatric medication and seizure medication. She was advised and educated about compliance with treatment and she promises that she will try harder. Patient was started on citalopram, then gabapentin was added and she responded well to this combination reported improved mood stability and less anxiety. She was medication seeking asking for lorazepam frequently and was redirected on the proper use of this medication. Prior to discharge she was medically stable and denies suicidal ideation and reported her anxiety is under control. Discharge plan and follow-up was completed by renal social worker. - Time Spent with Patient Total time spent providing and/or coordinating discharge services: Greater than 30 minutes Quality - Multiple Antipsychotics Patient discharged on 2 or more antipsychotic medications: No Procedures - Procedures Procedures: Medication Management, Crisis Stabilization, Supportive Therapy, Group Therapy, Psychoeducational Therapy Mental Status Exam - Mental Status Exam Patient orientation: Yes Person, Yes Time, Yes Place Level of alertness: Alert Patient appearance: Appropriate, Well Groomed Behavior: calm, cooperative Psychomotor activity: Normal Eye contact: Maintains Eye Contact Mood description: Euthymic/stable Affect description: congruent with mood, full range Speech pattern: Normal rate, Normal rhythm, Normal tone Speech Volume: Normal Thought process: Linear, Goal Oriented Thought Content: No Suicidal ideation, No Homicidal ideation, No Overt delusions Perceptual Disturbances: No Auditory hallucinations, No Visual hallucinations Judgment: Limited Insight: Partial
== END 2016-09-19 16:25 | disposition home or self-care (01) | DRG 751 ==
LOC: 1ANU 15:25 → EMEROO 15:25 → 1ANU 09-15 17:29
PROVIDERS: ADMIT Psychiatry & Neurology Psychiatry; ATTEND Psychiatry & Neurology Psychiatry

== ENCOUNTER 2019-01-25 22:45 | Inpatient (IN) ==
[2019-01-25] MEDS ORDERED: *HR* LORazepam 2 MG/ML VIAL IVP ONE (22:52)
[2019-01-25] MEDS ORDERED: 0.9 % Sodium Chloride 1,000 ML IVC ONE (22:54)
--- NOTE | 2019-01-25 22:56 | Emergency Department Note ---
Disposition Clinical Impression: Gastric perforation Drug overdose Qualifiers: Encounter type: initial encounter Injury intent: accidental or unintentional Qualified Code(s): T50.901A - Poisoning by unspecified drugs, medicaments and biological substances, accidental (unintentional), initial encounter Aspiration pneumonia Qualifiers: Aspiration pneumonia type: unspecified Laterality: right Lung location: middle lobe of lung Qualified Code(s): J69.0 - Pneumonitis due to inhalation of food and vomit Disposition: Admitted As Inpatient Condition: Critical Time of Disposition: 03:30 General Adult HPI - General Chief complaint: ED Overdose Stated complaint: OD Time Seen by Provider: 01/25/19 22:51 Nursing Notes Reviewed: Yes Vital Signs Reviewed: Yes - History of Present Illness HPI Narrative: 33-year-old female presents emergency department after heroin overdose. EMS reports that she has been on a three-day meth [place] and uses heroin for sleep. Patient became alert after 10 mg of Narcan administration. Patient currently complaining of chest discomfort as well as abdominal pain. - Related Data Home Medications Medication Instructions Recorded Confirmed No Known Home Drugs 01/25/19 01/25/19 Allergies Allergy/AdvReac Type Severity Reaction Status Date / Time No Known Allergies Allergy Verified 01/25/19 22:55 All systems ED: reviewed and negative except as stated. Review of Systems: As Per HPI Limitations: ROS unobtainable due to patients medical condition (Patient agitated, writhing at times) Constitutional: Denies: fever Cardiovascular: Reports: chest pain Respiratory: Denies: cough, dyspnea Gastrointestinal: Reports: abdominal pain. Denies: nausea, vomiting Past Medical History - Past Medical History Medical history: Reports: no medical history Surgical history: Reports: non-contributory Psychiatric history: Reports: anxiety, depression, previous psychiatric hospitalization [employer] history: Reports: bilateral tubal ligation - Social History Smoking Status: Current every day smoker Smokeless Tobacco Status: No Alcohol use: Reports: occasionally Drug use: Reports: opiates, methamphetamine, IV Drug Use Physical Exam - General Limitations: no limitations General appearance: alert, other (Appears agitated) - Head Head exam: other (Sores on face) - Eye Eye exam: Present: EOMI - ENT ENT exam: mucous membranes dry - Neck Neck exam: Present: trachea midline - Chest Chest inspection: Present: symmetric chest wall rise - Respiratory Respiratory exam: Present: normal lung sounds bilaterally. Absent: respiratory distress, accessory muscle use - Cardiovascular Cardiovascular exam: Present: normal rhythm, tachycardia, normal heart sounds - Abdominal Exam Abdominal exam: Present: tenderness, distention. Absent: guarding, rebound, rigidity - Extremities Exam Extremities exam: Present: normal capillary refill - Back Exam Back exam: Present: full ROM - Neurological Exam Neurological exam: Present: alert - Psychiatric Psychiatric exam: Present: agitated - Skin Skin exam: Present: warm Course Vital Signs Temperature 98.8 F 01/25/19 22:50 Pulse Rate 122 01/25/19 22:50 Respiratory Rate 20 01/25/19 22:50 Blood Pressure 153/111 01/25/19 22:50 O2 Sat by Pulse Oximetry 100 01/25/19 22:50 Temperature 98.8 F 01/25/19 22:50 Pulse Rate 85 01/26/19 02:56 Respiratory Rate 16 01/26/19 04:16 Blood Pressure 126/92 01/26/19 04:16 O2 Sat by Pulse Oximetry 99 01/26/19 02:56 Oxygen Delivery Oxygen Delivery Room Air Medical Decision Making - [facility] Narrative Medical decision making narrative: 33-year-old female presents emergency department after overdose of heroin. Patient currently agitated in the emergency department, moaning, groaning, complaining of some chest and abdominal discomfort. Replacing IV. We will give the patient 2 mg of Ativan of fluids. We are going to obtain CT scan of the head as well as abdomen and pelvis. Obtaining labs as welll. Hepatic transaminases are mildly elevated. Patient is IV drug user, at risk for hepatitis, obtained a hepatitis panel. CT scan of abdomen and pelvis revealed possible gastric perforation. I spoke with the general surgeon, Dr. Rivers corrections specialist. He came down to evaluate the p atient. Stated to have patient admitted to the intensive care unit, place nasogastric tube, Bowling catheter. Patient provided Zosyn for both intrabdominal processes and possible aspiration pneumonia. Dr. Kitchen agreed to accept the patient. Abdomen/Pelvis CT 01/26/19 00:00 IMPRESSION: Large volume of free air in the peritoneal cavity consistent with a perforated viscus. Multiple small bubbles of air adjacent to the stomach suggest possible gastric perforation. There is no significant free fluid. Mild patchy airspace disease in the medial posterior right lung base. This may represent pneumonia, possibly from aspiration. Clinical correlation recommended. Critical results were called by Dr. Ji Parham MD to Dr. Barrios On 01/26/2019 at 02:17. D/ / Ji Parham MD / Ji Parham MD Interpreting Provider: Ji Parham MD Chest X-Ray 01/26/19 00:00 IMPRESSION: 1. Large amount of free air beneath hemidiaphragms, please see CT abdomen and pelvis for further detail. 2. Mild bilateral perihilar prominence which may relate to central vascular congestion, bronchitis or other infectious/inflammatory process. D/ / Jos Lopes MD / Jos Lopes MD Interpreting Provider: Jos Lopes MD Head CT 01/26/19 00:00 IMPRESSION: No acute intracranial abnormality on this study degraded by motion. D/ / Ji Parham MD / Ji Parham MD Interpreting Provider: Ji Parham MD - Lab Data Result diagrams: 01/25/19 22:52 01/25/19 22:52 Lab Results 01/25/19 01/25/19 01/25/19 Range/Units 22:52 22:52 22:52 WBC 9.1 (4.3-11.1) K/mcL RBC 4.18 (3.82-4.97) M/mcL Hgb 12.4 (11.5-15.4) g/dL Hct 38.1 (35.3-44.9) % MCV 91.1 (83.0-100.0) fL MCH 29.7 (28.0-33.3) pg MCHC 32.5 (31.6-35.5) g/dL RDW 13.6 (11.5-14.5) % Plt Count 257 (140-400) K/mcL MPV 10.4 (9.4-12.4) fL Immature Gran % 0.2 (0-4) % Seg Neutrophils % 73.3 % Lymphocytes % 20.3 % Monocytes % 5.4 % Eosinophils % 0.4 % Basophils % 0.4 % Neutrophils # 6.7 (1.6-8.9) K/mcL Lymphocytes # 1.8 (0.6-4.6) K/mcL Monocytes # 0.5 (0.0-1.3) K/mcL Eosinophils # 0.0 (0.0-0.6) K/mcL Basophils # 0.0 (0.0-0.2) K/mcL Sodium 139 (136-145) mEq/L Potassium 3.3 L (3.5-5.1) mEq/L Chloride 102 (98-107) mEq/L Carbon Dioxide 25 (23-29) mEq/L BUN 12 (6-20) mg/dL Creatinine 0.93 (0.60-1.20) mg/dL Est GFR ( Amer) > 60 (> 60) Est GFR (Non-Af Amer) > 60 (> 60) BUN/Creatinine Ratio 13 (6-26) Glucose 210 H (70-105) mg/dL Calculated Osmolality 294 (280-300) Calcium 9.6 (8.6-10.3) mg/dL Total Bilirubin 0.9 (0.3-1.0) mg/dL AST 68 H (13-39) Units/L ALT 132 H (7-52) Units/L Alkaline Phosphatase 70 (34-104) Units/L Troponin I < 0.03 (< 0.04) ng/mL Serum Total Protein 8.1 (6.4-8.9) g/dL Albumin 4.7 (3.5-5.7) g/dL Globulin 3.4 (2.4-3.5) g/dL Albumin/Globulin Ratio 1.4 (1.1-2.2) Lipase 6 L (11-82) Units/L Serum , Qual Negative (Negative) Urine Color (Yellow) Urine Clarity (Clear) Urine pH (5.0-8.0) pH Units Ur Specific Hammond (1.010-1.025) Urine Protein (Neg-Trace) mg/dL Urine Glucose (UA) (Normal) mg/dL Urine Ketones (Negative) mg/dL Urine Blood (Negative) Urine Nitrite (Negative) Urine Bilirubin (Negative) Urine Urobilinogen (Normal) mg/dL Ur Leukocyte Esterase (Negative) Urine Microscopic RBC (0-3) per hpf Urine Microscopic WBC (0-3) per hpf Ur Squamous Epith Cells (None-Few) per lpf Urine Bacteria (None-Few) per hpf Hyaline Casts (None-Few) per lpf Ur Culture Indicated? (NO) Urine Test (Negative) Salicylates (15.0-30.0) mg/dL Urine Opiates Screen (Nzowfm=117) ng/mL Ur Buprenorphine Scrn (Cutoff=5) ng/mL Acetaminophen (10-20) mcg/mL Ur Barbiturates Screen (Dugylr=110) ng/mL Ur Phencyclidine Scrn (Cutoff=25) ng/mL Ur Amphetamines Screen (Qfnmfl=5447) ng/mL U Benzodiazepines Scrn (Fooxdg=168) ng/mL Urine Cocaine Screen (Cutoff= 300) ng/mL U Marijuana (THC) Screen (Cutoff = 50) ng/mL Ur Drug Screen Interp Ethyl Alcohol (Less than 10) mg/dL Hep Bs Antigen (Nonreactive) 01/25/19 01/25/19 01/26/19 Range/Units 22:53 23:14 00:02 WBC (4.3-11.1) K/mcL RBC (3.82-4.97) M/mcL Hgb (11.5-15.4) g/dL Hct (35.3-44.9) % MCV (83.0-100.0) fL MCH (28.0-33.3) pg MCHC (31.6-35.5) g/dL RDW (11.5-14.5) % Plt Count (140-400) K/mcL MPV (9.4-12.4) fL Immature Gran % (0-4) % Seg Neutrophils % % Lymphocytes % % Monocytes % % Eosinophils % % Basophils % % Neutrophils # (1.6-8.9) K/mcL Lymphocytes # (0.6-4.6) K/mcL Monocytes # (0.0-1.3) K/mcL Eosinophils # (0.0-0.6) K/mcL Basophils # (0.0-0.2) K/mcL Sodium (136-145) mEq/L Potassium (3.5-5.1) mEq/L Chloride (98-107) mEq/L Carbon Dioxide (23-29) mEq/L BUN (6-20) mg/dL Creatinine (0.60-1.20) mg/dL Est GFR ( Amer) (> 60) Est GFR (Non-Af Amer) (> 60) BUN/Creatinine Ratio (6-26) Glucose (70-105) mg/dL Calculated Osmolality (280-300) Calcium (8.6-10.3) mg/dL Total Bilirubin (0.3-1.0) mg/dL AST (13-39) Units/L ALT (7-52) Units/L Alkaline Phosphatase (34-104) Units/L Troponin I (< 0.04) ng/mL Serum Total Protein (6.4-8.9) g/dL Albumin (3.5-5.7) g/dL Globulin (2.4-3.5) g/dL Albumin/Globulin Ratio (1.1-2.2) Lipase (11-82) Units/L Serum , Qual (Negative) Urine Color Dark Yellow (Yellow) Urine Clarity Cloudy A (Clear) Urine pH 5.0 (5.0-8.0) pH Units Ur Specific Hammond 1.028 H (1.010-1.025) Urine Protein 100 H (Neg-Trace) mg/dL Urine Glucose (UA) Normal (Normal) mg/dL Urine Ketones Negative (Negative) mg/dL Urine Blood Trace H (Negative) Urine Nitrite Negative (Negative) Urine Bilirubin Small H (Negative) Urine Urobilinogen Normal (Normal) mg/dL Ur Leukocyte Esterase Negative (Negative) Urine Microscopic RBC 0-3 (0-3) per hpf Urine Microscopic WBC 5-15 H (0-3) per hpf Ur Squamous Epith Cells Many H (None-Few) per lpf Urine Bacteria Few (None-Few) per hpf Hyaline Casts Moderate H (None-Few) per lpf Ur Culture Indicated? YES A (NO) Urine Test (Negative) Salicylates < 2.5 L (15.0-30.0) mg/dL Urine Opiates Screen (Rlgsuv=151) ng/mL Ur Buprenorphine Scrn (Cutoff=5) ng/mL Acetaminophen < 10 L (10-20) mcg/mL Ur Barbiturates Screen (Auzhbq=455) ng/mL Ur Phencyclidine Scrn (Cutoff=25) ng/mL Ur Amphetamines Screen (Ihcrnu=0189) ng/mL U Benzodiazepines Scrn (Rlnauc=616) ng/mL Urine Cocaine Screen (Cutoff= 300) ng/mL U Marijuana (THC) Screen (Cutoff = 50) ng/mL Ur Drug Screen Interp Ethyl Alcohol < 10 (Less than 10) mg/dL Hep Bs Antigen Nonreactive (Nonreactive) 01/26/19 01/26/19 Range/Units 00:02 00:02 WBC (4.3-11.1) K/mcL RBC (3.82-4.97) M/mcL Hgb (11.5-15.4) g/dL Hct (35.3-44.9) % MCV (83.0-100.0) fL MCH (28.0-33.3) pg MCHC (31.6-35.5) g/dL RDW (11.5-14.5) % Plt Count (140-400) K/mcL MPV (9.4-12.4) fL Immature Gran % (0-4) % Seg Neutrophils % % Lymphocytes % % Monocytes % % Eosinophils % % Basophils % % Neutrophils # (1.6-8.9) K/mcL Lymphocytes # (0.6-4.6) K/mcL Monocytes # (0.0-1.3) K/mcL Eosinophils # (0.0-0.6) K/mcL Basophils # (0.0-0.2) K/mcL Sodium (136-145) mEq/L Potassium (3.5-5.1) mEq/L Chloride (98-107) mEq/L Carbon Dioxide (23-29) mEq/L BUN (6-20) mg/dL Creatinine (0.60-1.20) mg/dL Est GFR ( Amer) (> 60) Est GFR (Non-Af Amer) (> 60) BUN/Creatinine Ratio (6-26) Glucose (70-105) mg/dL Calculated Osmolality (280-300) Calcium (8.6-10.3) mg/dL Total Bilirubin (0.3-1.0) mg/dL AST (13-39) Units/L ALT (7-52) Units/L Alkaline Phosphatase (34-104) Units/L Troponin I (< 0.04) ng/mL Serum Total Protein (6.4-8.9) g/dL Albumin (3.5-5.7) g/dL Globulin (2.4-3.5) g/dL Albumin/Globulin Ratio (1.1-2.2) Lipase (11-82) Units/L Serum , Qual (Negative) Urine Color (Yellow) Urine Clarity (Clear) Urine pH (5.0-8.0) pH Units Ur Specific Hammond (1.010-1.025) Urine Protein (Neg-Trace) mg/dL Urine Glucose (UA) (Normal) mg/dL Urine Ketones (Negative) mg/dL Urine Blood (Negative) Urine Nitrite (Negative) Urine Bilirubin (Negative) Urine Urobilinogen (Normal) mg/dL Ur Leukocyte Esterase (Negative) Urine Microscopic RBC (0-3) per hpf Urine Microscopic WBC (0-3) per hpf Ur Squamous Epith Cells (None-Few) per lpf Urine Bacteria (None-Few) per hpf Hyaline Casts (None-Few) per lpf Ur Culture Indicated? (NO) Urine Test Negative (Negative) Salicylates (15.0-30.0) mg/dL Urine Opiates Screen Negative (Dumkee=883) ng/mL Ur Buprenorphine Scrn Negative (Cutoff=5) ng/mL Acetaminophen (10-20) mcg/mL Ur Barbiturates Screen Negative (Yjauwr=729) ng/mL Ur Phencyclidine Scrn Negative (Cutoff=25) ng/mL Ur Amphetamines Screen Positive H (Qdowas=8603) ng/mL U Benzodiazepines Scrn Positive H (Mmhaoq=736) ng/mL Urine Cocaine Screen Negative (Cutoff= 300) ng/mL U Marijuana (THC) Screen Positive H (Cutoff = 50) ng/mL Ur Drug Screen Interp See Below Ethyl Alcohol (Less than 10) mg/dL Hep Bs Antigen (Nonreactive) - EKG Data EKG #1 EKG attestation: Yes I reviewed and interpreted this EKG. EKG results narrative: 23:01 Heart rate 118 bpm, MS 100 4106, QRS duration 76 ms, QT 312 ms, normal axis. Sinus tachycardia with no ischemic ST changes. Lots of artifact on this ECG.
--- NOTE | 2019-01-25 23:21 | Emergency Department Note ---
Disposition Clinical Impression: Gastric perforation Drug overdose Qualifiers: Encounter type: initial encounter Injury intent: accidental or unintentional Qualified Code(s): T50.901A - Poisoning by unspecified drugs, medicaments and biological substances, accidental (unintentional), initial encounter Aspiration pneumonia Qualifiers: Aspiration pneumonia type: unspecified Laterality: right Lung location: middle lobe of lung Qualified Code(s): J69.0 - Pneumonitis due to inhalation of food and vomit Disposition: Admitted As Inpatient Condition: Critical Time of Disposition: 03:30 General Adult HPI - General Chief complaint: ED Overdose Stated complaint: OD Time Seen by Provider: 01/25/19 22:51 Source: patient, EMS Limitations: altered mental status Nursing Notes Reviewed: Yes Vital Signs Reviewed: Yes - History of Present Illness Pain Scale: 10 - Related Data Home Medications Medication Instructions Recorded Confirmed No Known Home Drugs 01/25/19 01/25/19 Allergies Allergy/AdvReac Type Severity Reaction Status Date / Time No Known Allergies Allergy Verified 01/25/19 22:55 Past Medical History - Past Medical History Medical history: Reports: no medical history Surgical history: Reports: non-contributory Psychiatric history: Reports: anxiety, depression, previous psychiatric h ospitalization [employer] history: Reports: bilateral tubal ligation - Social History Smoking Status: Current every day smoker Smokeless Tobacco Status: No Alcohol use: Reports: occasionally Drug use: Reports: opiates, marijuana, methamphetamine, IV Drug Use, other Physical Exam - General Limitations: altered mental status General appearance: appears intoxicated Course Vital Signs Temperature 98.8 F 01/25/19 22:50 Pulse Rate 122 01/25/19 22:50 Respiratory Rate 20 01/25/19 22:50 Blood Pressure 153/111 01/25/19 22:50 O2 Sat by Pulse Oximetry 100 01/25/19 22:50 Temperature 96.6 F L 01/26/19 04:15 Pulse Rate 70 01/26/19 05:00 Respiratory Rate 18 01/26/19 05:00 Blood Pressure 130/96 01/26/19 05:00 O2 Sat by Pulse Oximetry 98 01/26/19 05:00 Oxygen Delivery Oxygen Delivery Room Air Medical Decision Making - Medical Records Medical records reviewed: Yes I reviewed the patient's medical records. - Lab Data Lab results reviewed: Yes I reviewed the patient's lab results. Result diagrams: 01/25/19 22:52 01/25/19 22:52 Lab Results 01/25/19 01/25/19 01/25/19 Range/Units 22:52 22:52 22:52 WBC 9.1 (4.3-11.1) K/mcL RBC 4.18 (3.82-4.97) M/mcL Hgb 12.4 (11.5-15.4) g/dL Hct 38.1 (35.3-44.9) % MCV 91.1 (83.0-100.0) fL MCH 29.7 (28.0-33.3) pg MCHC 32.5 (31.6-35.5) g/dL RDW 13.6 (11.5-14.5) % Plt Count 257 (140-400) K/mcL MPV 10.4 (9.4-12.4) fL Immature Gran % 0.2 (0-4) % Seg Neutrophils % 73.3 % Lymphocytes % 20.3 % Monocytes % 5.4 % Eosinophils % 0.4 % Basophils % 0.4 % Neutrophils # 6.7 (1.6-8.9) K/mcL Lymphocytes # 1.8 (0.6-4.6) K/mcL Monocytes # 0.5 (0.0-1.3) K/mcL Eosinophils # 0.0 (0.0-0.6) K/mcL Basophils # 0.0 (0.0-0.2) K/mcL Sodium 139 (136-145) mEq/L Potassium 3.3 L (3.5-5.1) mEq/L Chloride 102 (98-107) mEq/L Carbon Dioxide 25 (23-29) mEq/L BUN 12 (6-20) mg/dL Creatinine 0.93 (0.60-1.20) mg/dL Est GFR ( Amer) > 60 (> 60) Est GFR (Non-Af Amer) > 60 (> 60) BUN/Creatinine Ratio 13 (6-26) Glucose 210 H (70-105) mg/dL Calculated Osmolality 294 (280-300) Calcium 9.6 (8.6-10.3) mg/dL Total Bilirubin 0.9 (0.3-1.0) mg/dL AST 68 H (13-39) Units/L ALT 132 H (7-52) Units/L Alkaline Phosphatase 70 (34-104) Units/L Troponin I < 0.03 (< 0.04) ng/mL Serum Total Protein 8.1 (6.4-8.9) g/dL Albumin 4.7 (3.5-5.7) g/dL Globulin 3.4 (2.4-3.5) g/dL Albumin/Globulin Ratio 1.4 (1.1-2.2) Lipase 6 L (11-82) Units/L Serum , Qual Negative (Negative) Urine Color (Yellow) Urine Clarity (Clear) Urine pH (5.0-8.0) pH Units Ur Specific [place] (1.010-1.025) Urine Protein (Neg-Trace) mg/dL Urine Glucose (UA) (Normal) mg/dL Urine Ketones (Negative) mg/dL Urine Blood (Negative) Urine Nitrite (Negative) Urine Bilirubin (Negative) Urine Urobilinogen (Normal) mg/dL Ur Leukocyte Esterase (Negative) Urine Microscopic RBC (0-3) per hpf Urine Microscopic WBC (0-3) per hpf Ur Squamous Epith Cells (None-Few) per lpf Urine Bacteria (None-Few) per hpf Hyaline Casts (None-Few) per lpf Ur Culture Indicated? (NO) Urine Test (Negative) Salicylates (15.0-30.0) mg/dL Urine Opiates Screen (Umswpy=663) ng/mL Ur Buprenorphine Scrn (Cutoff=5) ng/mL Acetaminophen (10-20) mcg/mL Ur Barbiturates Screen (Dypmzj=326) ng/mL Ur Phencyclidine Scrn (Cutoff=25) ng/mL Ur Amphetamines Screen (Tfrmvj=9059) ng/mL U Benzodiazepines Scrn (Jsxwmd=523) ng/mL Urine Cocaine Screen (Cutoff= 300) ng/mL U Marijuana (THC) Screen (Cutoff = 50) ng/mL Ur Drug Screen Interp Ethyl Alcohol (Less than 10) mg/dL Hepatitis A IgM Ab (Nonreactive) Hep Bs Antigen (Nonreactive) Hep B Core IgM Ab (Nonreactive) Hepatitis C Ab Screen (Nonreactive) 01/25/19 01/25/19 01/26/19 Range/Units 22:53 23:14 00:02 WBC (4.3-11.1) K/mcL RBC (3.82-4.97) M/mcL Hgb (11.5-15.4) g/dL Hct (35.3-44.9) % MCV (83.0-100.0) fL MCH (28.0-33.3) pg MCHC (31.6-35.5) g/dL RDW (11.5-14.5) % Plt Count (140-400) K/mcL MPV (9.4-12.4) fL Immature Gran % (0-4) % Seg Neutrophils % % Lymphocytes % % Monocytes % % Eosinophils % % Basophils % % Neutrophils # (1.6-8.9) K/mcL Lymphocytes # (0.6-4.6) K/mcL Monocytes # (0.0-1.3) K/mcL Eosinophils # (0.0-0.6) K/mcL Basophils # (0.0-0.2) K/mcL Sodium (136-145) mEq/L Potassium (3.5-5.1) mEq/L Chloride (98-107) mEq/L Carbon Dioxide (23-29) mEq/L BUN (6-20) mg/dL Creatinine (0.60-1.20) mg/dL Est GFR ( Amer) (> 60) Est GFR (Non-Af Amer) (> 60) BUN/Creatinine Ratio (6-26) Glucose (70-105) mg/dL Calculated Osmolality (280-300) Calcium (8.6-10.3) mg/dL Total Bilirubin (0.3-1.0) mg/dL AST (13-39) Units/L ALT (7-52) Units/L Alkaline Phosphatase (34-104) Units/L Troponin I (< 0.04) ng/mL Serum Total Protein (6.4-8.9) g/dL Albumin (3.5-5.7) g/dL Globulin (2.4-3.5) g/dL Albumin/Globulin Ratio (1.1-2.2) Lipase (11-82) Units/L Serum , Qual (Negative) Urine Color Dark Yellow (Yellow) Urine Clarity Cloudy A (Clear) Urine pH 5.0 (5.0-8.0) pH Units Ur Specific [place] 1.028 H (1.010-1.025) Urine Protein 100 H (Neg-Trace) mg/dL Urine Glucose (UA) Normal (Normal) mg/dL Urine Ketones Negative (Negative) mg/dL Urine Blood Trace H (Negative) Urine Nitrite Negative (Negative) Urine Bilirubin Small H (Negative) Urine Urobilinogen Normal (Normal) mg/dL Ur Leukocyte Esterase Negative (Negative) Urine Microscopic RBC 0-3 (0-3) per hpf Urine Microscopic WBC 5-15 H (0-3) per hpf Ur Squamous Epith Cells Many H (None-Few) per lpf Urine Bacteria Few (None-Few) per hpf Hyaline Casts Moderate H (None-Few) per lpf Ur Culture Indicated? YES A (NO) Urine Test (Negative) Salicylates < 2.5 L (15.0-30.0) mg/dL Urine Opiates Screen (Icixza=945) ng/mL Ur Buprenorphine Scrn (Cutoff=5) ng/mL Acetaminophen < 10 L (10-20) mcg/mL Ur Barbiturates Screen (Zjtowz=720) ng/mL Ur Phencyclidine Scrn (Cutoff=25) ng/mL Ur Amphetamines Screen (Hfzxpb=6323) ng/mL U Benzodiazepines Scrn (Ynybqw=835) ng/mL Urine Cocaine Screen (Cutoff= 300) ng/mL U Marijuana (THC) Screen (Cutoff = 50) ng/mL Ur Drug Screen Interp Ethyl Alcohol < 10 (Less than 10) mg/dL Hepatitis A IgM Ab Nonreactive (Nonreactive) Hep Bs Antigen Nonreactive (Nonreactive) Hep B Core IgM Ab Nonreactive (Nonreactive) Hepatitis C Ab Screen Reactive H (Nonreactive) 01/26/19 01/26/19 Range/Units 00:02 00:02 WBC (4.3-11.1) K/mcL RBC (3.82-4.97) M/mcL Hgb (11.5-15.4) g/dL Hct (35.3-44.9) % MCV (83.0-100.0) fL MCH (28.0-33.3) pg MCHC (31.6-35.5) g/dL RDW (11.5-14.5) % Plt Count (140-400) K/mcL MPV (9.4-12.4) fL Immature Gran % (0-4) % Seg Neutrophils % % Lymphocytes % % Monocytes % % Eosinophils % % Basophils % % Neutrophils # (1.6-8.9) K/mcL Lymphocytes # (0.6-4.6) K/mcL Monocytes # (0.0-1.3) K/mcL Eosinophils # (0.0-0.6) K/mcL Basophils # (0.0-0.2) K/mcL Sodium (136-145) mEq/L Potassium (3.5-5.1) mEq/L Chloride (98-107) mEq/L Carbon Dioxide (23-29) mEq/L BUN (6-20) mg/dL Creatinine (0.60-1.20) mg/dL Est GFR ( Amer) (> 60) Est GFR (Non-Af Amer) (> 60) BUN/Creatinine Ratio (6-26) Glucose (70-105) mg/dL Calculated Osmolality (280-300) Calcium (8.6-10.3) mg/dL Total Bilirubin (0.3-1.0) mg/dL AST (13-39) Units/L ALT (7-52) Units/L Alkaline Phosphatase (34-104) Units/L Troponin I (< 0.04) ng/mL Serum Total Protein (6.4-8.9) g/dL Albumin (3.5-5.7) g/dL Globulin (2.4-3.5) g/dL Albumin/Globulin Ratio (1.1-2.2) Lipase (11-82) Units/L Serum , Qual (Negative) Urine Color (Yellow) Urine Clarity (Clear) Urine pH (5.0-8.0) pH Units Ur Specific [place] (1.010-1.025) Urine Protein (Neg-Trace) mg/dL Urine Glucose (UA) (Normal) mg/dL Urine Ketones (Negative) mg/dL Urine Blood (Negative) Urine Nitrite (Negative) Urine Bilirubin (Negative) Urine Urobilinogen (Normal) mg/dL Ur Leukocyte Esterase (Negative) Urine Microscopic RBC (0-3) per hpf Urine Microscopic WBC (0-3) per hpf Ur Squamous Epith Cells (None-Few) per lpf Urine Bacteria (None-Few) per hpf Hyaline Casts (None-Few) per lpf Ur Culture Indicated? (NO) Urine Test Negative (Negative) Salicylates (15.0-30.0) mg/dL Urine Opiates Screen Negative (Zecawv=532) ng/mL Ur Buprenorphine Scrn Negative (Cutoff=5) ng/mL Acetaminophen (10-20) mcg/mL Ur Barbiturates Screen Negative (Mcvgsh=851) ng/mL Ur Phencyclidine Scrn Negative (Cutoff=25) ng/mL Ur Amphetamines Screen Positive H (Dxksys=4057) ng/mL U Benzodiazepines Scrn Positive H (Ijddvb=561) ng/mL Urine Cocaine Screen Negative (Cutoff= 300) ng/mL U Marijuana (THC) Screen Positive H (Cutoff = 50) ng/mL Ur Drug Screen Interp See Below Ethyl Alcohol (Less than 10) mg/dL Hepatitis A IgM Ab (Nonreactive) Hep Bs Antigen (Nonreactive) Hep B Core IgM Ab (Nonreactive) Hepatitis C Ab Screen (Nonreactive) - Radiology Data Radiology results reviewed: Yes I reviewed the patient's radiology results. Abdomen/Pelvis CT 01/26/19 00:00 IMPRESSION: Large volume of free air in the peritoneal cavity consistent with a perforated viscus. Multiple small bubbles of air adjacent to the stomach suggest possible gastric perforation. There is no significant free fluid. Mild patchy airspace disease in the medial posterior right lung base. This may represent pneumonia, possibly from aspiration. Clinical correlation recommended. Critical results were called by Dr. Ji Parham MD to Dr. Barrios On 01/26/2019 at 02:17. D/ / Ji Parham MD / Ji Parham MD Interpreting Provider: Ji Parham MD Chest X-Ray 01/26/19 00:00 IMPRESSION: 1. Large amount of free air beneath hemidiaphragms, please see CT abdomen and pelvis for further detail. 2. Mild bilateral perihilar prominence which may relate to central vascular congestion, bronchitis or other infectious/inflammatory process. D/ / Jos Lopes MD / Jos Lopes MD Interpreting Provider: Jos Lopes MD Head CT 01/26/19 00:00 IMPRESSION: No acute intracranial abnormality on this study degraded by motion. D/ / Ji Parham MD / Ji Parham MD Interpreting Provider: iJ Parham MD - EKG Data EKG #1 EKG attestation: Yes I reviewed and interpreted this EKG. EKG results narrative: EKG shows sinus tachycardia with ventricular rate of 118. Nonspecific T-wave abnormality. No significant ST segment elevation or depression. No ectopy. Critical Care Time Critical Care Time: Yes Total Critical Care Time: 45 Attestation: Critical care performed: Time is exclusive of separately billable procedures. Time includes: direct patient care, patient reassessment, coordination of patient care, interpretation of data (laboratory data, radiology data, and respiratory data), review of patient's medical records, medical consultation and documentation of patient care. Procedures included in critical care time: Procedures excluded from critical care time: Attestation Statement - Attestation Attestation: I, Camilo Barrios MD, personally evaluated this patient and discussed their management with the resident physician. I reviewed the resident's note and agree with the documented findings, medical decision making, and plan of care. I reviewed the residents documentation and agree with the residents assessment and plan of care. I have personally had face to face time with the patient. I personally supervised and was present for the lindsey/critical portions of the following procedures completed by the resident: EKG interpretation. 33-year-old female presents to the emergency department by EMS for complaint of heroin overdose. EMS reports when they arrived the patient was unresponsive with a needle in her arm. She required 10 mg of Narcan before she became alert. After she woke up she complains of severe abdominal pain, worse on the right side. On arrival here the patient is thrashing and moaning and making unintelligible sounds. She complains of abdominal pain and says help me and asked for pain medications. Really unable to provide much significant history or review of systems at this point. On examination patient is a well-developed thin female. She is alert. No cyanosis or diaphoresis. Breath sounds are clear and equal bilaterally. Heart regular and tachycardic. Abdomen is firm and distended and diffusely tender. EKG shows sinus tachycardia with ventricular rate of 118. Nonspecific T-wave abnormality. No significant ST segment elevation or depression. No ectopy. Chest x-ray and abdominal CT showed a large amount of free intraperitoneal air. Radiologist felt there was likely a gastric perforation but not definitive. Labs reviewed. IV antibiotics initiated. Patient's vital signs have remained stable while here in the emergency department. 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 Rivers, was consulted and evaluated patient in the emergency department. The hospitalist, Dr. Kitchen, was consulted and accepted admission of the patient.
[2019-01-25 23:46] LABS: Acetaminophen < 10 mcg/mL (10-20); Ethanol < 10 mg/dL (Less than 10); Salicylate < 2.5 mg/dL (15.0-30.0)
[2019-01-25 23:48] LABS: Alanine Aminotransferase 132 Units/L (7-52); Albumin 4.7 g/dL (3.5-5.7); Albumin/Globulin Ratio 1.4 (1.1-2.2); Alkaline Phosphatase 70 Units/L (34-104); Aspartate Amino Transferase 68 Units/L (13-39); BUN/Creatinine Ratio 13 (6-26); Bilirubin,Total 0.9 mg/dL (0.3-1.0); Blood Urea Nitrogen 12 mg/dL (6-20); Calcium 9.6 mg/dL (8.6-10.3); Carbon Dioxide 25 mEq/L (23-29); Chloride 102 mEq/L (98-107); Globulin 3.4 g/dL (2.4-3.5); Glucose 210 mg/dL (70-105); Lipase 6 Units/L (11-82); Osmolality,Calculated 294 (280-300); Potassium 3.3 mEq/L (3.5-5.1); Sodium 139 mEq/L (136-145); Total Protein 8.1 g/dL (6.4-8.9); eGFR For African Americans > 60 (> 60); eGFR For Non-African Americans > 60 (> 60)
[2019-01-25 23:49] LABS: Troponin I < 0.03 ng/mL (< 0.04)
[2019-01-25 23:52] LABS: Basophils % 0.4 %; Eosinophils % 0.4 %; Hematocrit 38.1 % (35.3-44.9); Hemoglobin 12.4 g/dL (11.5-15.4); Immature Granulocytes % 0.2 % (0-4); Lymphocytes # 1.8 K/mcL (0.6-4.6); Lymphocytes % 20.3 %; Mean Corpuscular HGB Conc 32.5 g/dL (31.6-35.5); Mean Corpuscular Hemoglobin 29.7 pg (28.0-33.3); Mean Corpuscular Volume 91.1 fL (83.0-100.0); Mean Platelet Volume 10.4 fL (9.4-12.4); Monocytes # 0.5 K/mcL (0.0-1.3); Monocytes % 5.4 %; Neutrophils # 6.7 K/mcL (1.6-8.9); Platelet Count 257 K/mcL (140-400); Red Blood Count 4.18 M/mcL (3.82-4.97); Red Cell Distribution Width 13.6 % (11.5-14.5); Segmented Neutrophils % 73.3 %; White Blood Count 9.1 K/mcL (4.3-11.1)
[2019-01-26 00:16] LABS: Bilirubin,Urine Small (Negative); Blood,Urine Trace (Negative); Clarity,Urine Cloudy (Clear); Color,Urine Dark Yellow (Yellow); Glucose,Urine (UA) Normal (Normal); Ketones,Urine Negative (Negative); Leukocyte Esterase,Urine Negative (Negative); Nitrite,Urine Negative (Negative); Protein,Urine 100 mg/dL (Neg-Trace); Specific Gravity,Urine 1.028 (1.010-1.025); Urobilinogen,Urine Normal (Normal)
[2019-01-26 00:18] LABS: RBC,Urine 0-3 per hpf (0-3); Squamous Epithelial Cell,Urine Many per lpf (None-Few)
[2019-01-26 00:23] LABS: Amphetamine Screen,Urine Positive ng/mL (Cutoff=1000); Barbiturate Screen,Urine Negative ng/mL (Cutoff=200); Benzodiazepines Screen,Urine Positive ng/mL (Cutoff=200); Cannabinoid Screen,Urine Positive ng/mL (Cutoff = 50); Cocaine Screen,Urine Negative ng/mL (Cutoff= 300); Opiate Screen,Urine Negative ng/mL (Cutoff=300); Phencyclidine Screen,Urine Negative ng/mL (Cutoff=25)
[2019-01-26 00:32] LABS: Bacteria,Urine Few per hpf (None-Few); Hyaline Casts,Urine Moderate per lpf (None-Few)
[2019-01-26] MEDS ORDERED: Morphine Sulfate 2 MG/ML SYRINGE IVP ONE (02:17)
[2019-01-26] MEDS ORDERED: 0.9 % Sodium Chloride 1,000 ML IVC STA (02:39)
[2019-01-26] MEDS ORDERED: Piperacillin/Tazobactam 3.375 GM in Water for inj. (sterile) 20 ML IVP ONE (02:40)
--- NOTE | 2019-01-26 03:00 | AcuteCare Surgery Consult Note ---
Date of Encounter: 01/26/19 Time of Encounter: 02:20 Assessment and Plan (1) Intra-abdominal free air of unknown etiology Current Visit: Yes Status: Acute The patient is currently under treatment for acute narcotic overdose. She has received Narcan and is currently under the effective opioids area she is obtunded and unable to give a history. White blood cell count is normal. I personally reviewed the CAT scan of the abdomen there is a large volume of free air of unknown etiology. In my opinion, it is unsafe to give the patient general anesthetic at this time. I would recommend nasogastric tube drainage intravenous fluids with hydration Protonix drip and broad-spectrum antibiotics. We will reevaluate for exploratory laparotomy and 812 hours History of Present Illness Consult date: 01/26/19 Reason for consult: other (Abdominal free air) History of present illness: The patient is a 33-year-old female who sustained a narcotic overdose at her [facility] this evening and the squad was called to respond. She was given Narcan. He was noted that her abdomen was distended on evaluation in the emergency room. A subsequent CAT scan demonstrated a high volume of free air in the abdomen. The patient did not have any active resuscitation at the scene or in the emergency room. At time of evaluation the patient is obtunded and unresponsive. She is c achectic with a tympanic abdomen. Abdominal examination is unreliable. By history, the patient has been doing a combination of methamphetamine and heroin for at least 3 days area she has been using methamphetamine during the day and heroin at night. No family is present for history White blood cell count is normal at 9100 hemoglobin and hematocrit are normal. Electrolytes are normal except for a mildly decreased potassium at 3.2. Liver function tests demonstrate mildly elevated transaminases renal function is normal. drug screen is positive. The patient has free air in the abdomen of unknown duration and etiology she is currently under the effects of heroin overdose as well as Narcan. In my opinion the patient would be a tremendously high risk for general anesthetic this point. I would recommend placement in the ICU, nasogastric tube drainage, Protonix drip, broad-spectrum antibiotics, plan to reevaluate for exploratory laparotomy and 8-12 hours Past Med Surg Social Fam HX - Past Medical History Medical history: no medical history, IV drug use Psychiatric history: anxiety, depression, previous psychiatric hospitalization - Past Surgical History Surgical History: non-contributory Additional surgical history: C-sections - Social History Smoking Status: Current every day smoker Smokeless Tobacco Status: No Alcohol use: occasionally Drug use: opiates, marijuana, methamphetamine, IV Drug Use, other - Family History Father Hx Family Cardiac Disorders: Yes (heart disease) Medications and Allergies No Known Home Drugs 01/25/19 [History] Allergy/AdvReac Type Severity Reaction Status Date / Time No Known Allergies Allergy Verified 01/25/19 22:55 Review of Systems ROS unobtainable: due to mental status All systems PM: The remainder of the systems were reviewed and are negative General Surgery Exam Initial Vital Signs Temp Pulse Resp BP Pulse Ox 98.8 F 122 20 153/111 100 01/25/19 22:50 01/25/19 22:50 01/25/19 22:50 01/25/19 22:50 01/25/19 22:50 - General physical appearance cachectic, chronically ill, other (Obtunded) - Eyes other (The patient has bruising around her left eye) - ENT poor assisted, dry mucosa, Other (Skin complexion consistent with methamphetamine use) - Respiratory normal respiratory effort wheezing: bilateral - Cardiovascular Cardiovascular exam: Present: RRR, no murmurs/rubs/gallops - Abdomen Abdomen general surgery: Present: distended (Physical examination unreliable. Patient is obtunded) - Integumentary Integumentary general surgery: Present: rash (Multiple skin tracts both upper extremities and facial complexion consistent with methamphetamine use) - Neurologic Present: disoriented, other (Obtunded) - Psychiatric Psychiatric general surgery: Present: other (Obtunded) Exam Initial Vital Signs Temp Pulse Resp BP Pulse Ox 98.8 F 122 20 153/111 100 01/25/19 22:50 01/25/19 22:50 01/25/19 22:50 01/25/19 22:50 01/25/19 22:50 Results - Labs 01/25/19 22:52 01/25/19 22:52 Abnormal lab results Potassium 3.3 mEq/L (3.5-5.1) L 01/25/19 22:52 Glucose 210 mg/dL (70-105) H 01/25/19 22:52 AST 68 Units/L (13-39) H 01/25/19 22:52 ALT 132 Units/L (7-52) H 01/25/19 22:52 Lipase 6 Units/L (11-82) L 01/25/19 22:52 Urine Clarity Cloudy (Clear) A 01/26/19 00:02 Ur Specific [place] 1.028 (1.010-1.025) H 01/26/19 00:02 Urine Protein 100 mg/dL (Neg-Trace) H 01/26/19 00:02 Urine Blood Trace (Negative) H 01/26/19 00:02 Urine Bilirubin Small (Negative) H 01/26/19 00:02 Urine Microscopic WBC 5-15 per hpf (0-3) H 01/26/19 00:02 Ur Squamous Epith Cells Many per lpf (None-Few) H 01/26/19 00:02 Hyaline Casts Moderate per lpf (None-Few) H 01/26/19 00:02 Ur Culture Indicated? YES (NO) A 01/26/19 00:02 Salicylates < 2.5 mg/dL (15.0-30.0) L 01/25/19 22:53 Acetaminophen < 10 mcg/mL (10-20) L 01/25/19 22:53 Ur Amphetamines Screen Positive ng/mL (Mstgou=9984) H 01/26/19 00:02 U Benzodiazepines Scrn Positive ng/mL (Xnqcxg=736) H 01/26/19 00:02 U Marijuana (THC) Screen Positive ng/mL (Cutoff = 50) H 01/26/19 00:02 Diabetes panel 01/25/19 Range/Units 22:52 Sodium 139 (136-145) mEq/L Potassium 3.3 L (3.5-5.1) mEq/L Chloride 102 (98-107) mEq/L Carbon Dioxide 25 (23-29) mEq/L BUN 12 (6-20) mg/dL Creatinine 0.93 (0.60-1.20) mg/dL Glucose 210 H (70-105) mg/dL Calcium 9.6 (8.6-10.3) mg/dL AST 68 H (13-39) Units/L ALT 132 H (7-52) Units/L Alkaline Phosphatase 70 (34-104) Units/L Albumin 4.7 (3.5-5.7) g/dL Calcium panel 01/25/19 Range/Units 22:52 Calcium 9.6 (8.6-10.3) mg/dL Albumin 4.7 (3.5-5.7) g/dL Pituitary panel 01/25/19 Range/Units 22:52 Sodium 139 (136-145) mEq/L Potassium 3.3 L (3.5-5.1) mEq/L Chloride 102 (98-107) mEq/L Carbon Dioxide 25 (23-29) mEq/L BUN 12 (6-20) mg/dL Creatinine 0.93 (0.60-1.20) mg/dL Glucose 210 H (70-105) mg/dL Calcium 9.6 (8.6-10.3) mg/dL Adrenal panel 01/25/19 Range/Units 22:52 Sodium 139 (136-145) mEq/L Potassium 3.3 L (3.5-5.1) mEq/L Chloride 102 (98-107) mEq/L Carbon Dioxide 25 (23-29) mEq/L BUN 12 (6-20) mg/dL Creatinine 0.93 (0.60-1.20) mg/dL Glucose 210 H (70-105) mg/dL Calcium 9.6 (8.6-10.3) mg/dL Total Bilirubin 0.9 (0.3-1.0) mg/dL AST 68 H (13-39) Units/L ALT 132 H (7-52) Units/L Alkaline Phosphatase 70 (34-104) Units/L Albumin 4.7 (3.5-5.7) g/dL All other labs normal. - Imaging CT scan - abdomen: image reviewed (I personally reviewed the CAT scan of the abdomen. The patient has high volume of free air. Origin and duration of the free air is unknown) Consult Discharge Plan - Plan Referrals: NONE,PCP [Primary Care Provider] -
[2019-01-26] MEDS ORDERED: Piperacillin/Tazobactam 4.5 GM in 0.9 % Sodium Chloride Mini Bag 100 ML IVPB ONE (03:20)
[2019-01-26 04:01] LABS: Hepatitis B Surface Antigen Nonreactive (Nonreactive)
[2019-01-26] MEDS ORDERED: Naloxone 0.4 MG/ML INJ IVP PRN ×2 (04:07→14:51)
--- NOTE | 2019-01-26 04:10 | Internal Med History&Physical ---
<Norma Gamble - Last Filed: 01/26/19 05:59> Date of Encounter: 01/26/19 Time of Encounter: 04:10 Internal Medicine - H&P: HPI Chief complaint: Overdose Admitted From: Emergency Dept Plans for Post Hospital Care: Home History of present illness: Ms. Worthy is a 33 year old female with past medical history of polysubstance and IV drug abuse, anxiety, depression who presented to [facility] after a drug overdose and being found unresponsive. Upon my examination of the patient she is op tended and unable to give any history so information is taken from medical records. Apparently the patient had been on a three-day meth lemus and had been using heroin for sleep. When EMS arrived she was unresponsive that she was given 10 mg of Narcan after which she became alert. She then was complaining of chest discomfort and abdominal pain. Abdominal CT demonstrated findings of the perforated viscous that may be gastric perforation. The general surgeon Dr. Rivers evaluate the patient and recommended due to her clinical status that it would be unsafe to give her general anesthetic at this time but would reevaluate for exploratory laparotomy. The patient has known history of polysubstance abuse, smoking. There is no family or friends at bedside. She is a full code. The patient was given IV fluids, Zosyn, morphine, Ativan. Initial vitals in the ED word temperature 98.1F, HR 75, RR 16, BP 126/92, SpO2 98% on room air. WBC 9.1, hemoglobin 12.4, potassium 3.3, lactic acid 0.4, AST 68, ALT 132, troponin <0.03, lipase 6, negative test. Urinalysis unremarkable. -Urine drug screen with amphetamines, benzodiazepines, marijuana. -chest x-ray demonstrating large amount of free air beneath hemidiaphragm. -Abdomen/pelvis CT demonstrated large volume of free air in the peritoneal cavity consistent with perforated viscous. Possible gastric perforation due to multiple bubbles adjacent to stomach. Now patchy airspace disease in medial posterior right lung base may represent pneumonia, possible from aspiration. Past Med Surg Social Fam HX - Past Medical History Source: old records reviewed Medical history: no medical history, IV drug use Psychiatric history: anxiety, depression, previous psychiatric hospitalization - Past Surgical History Surgical History: non-contributory Additional surgical history: C-sections - Social History Smoking Status: Current every day smoker Smokeless Tobacco Status: No Alcohol use: occasionally Drug use: opiates, marijuana, methamphetamine, IV Drug Use, other - Family History Father Hx Family Cardiac Disorders: Yes (heart disease) Internal Medicine - H&P: Meds No Known Home Drugs 01/25/19 [History] Allergy/AdvReac Type Severity Reaction Status Date / Time No Known Allergies Allergy Verified 01/25/19 22:55 ROS unobtainable: due to mental status All Systems PM: A 10-system review of systems was performed and is negative for pertinent findings except as documented above in the HPI. - Constitutional Vitals: Temp Pulse Resp BP Pulse Ox 98.8 F 85 16 129/98 99 01/25/19 22:50 01/26/19 02:56 01/26/19 02:56 01/26/19 02:56 01/26/19 02:56 Exam: Gen.: Vitals noted. No acute distress. Obtunded HEENT: oropharynx clear, Normocephalic, atraumatic Cardiac: RRR, no murmur, +S1/S2 Pulmonary: CTA bilaterally, no wheezes, rales or rhonchi, equal chest expansion Abdomen: soft, distended skin: multiple skin excoriation's from picking all over body, bruise on left eye Extremities: no BLE edema Psych: obtunded Internal Med - H&P Results - Labs CBC & Chem 7: 01/25/19 22:52 01/25/19 22:52 Labs: Short CBC 01/25/19 Range/Units 22:52 WBC 9.1 (4.3-11.1) K/mcL Hgb 12.4 (11.5-15.4) g/dL Hct 38.1 (35.3-44.9) % Plt Count 257 (140-400) K/mcL Neutrophils # 6.7 (1.6-8.9) K/mcL BMP 01/25/19 22:52 Sodium 139 Potassium 3.3 L Chloride 102 Carbon Dioxide 25 BUN 12 Creatinine 0.93 Glucose 210 H Calcium 9.6 Cardiac Enzymes 01/25/19 Range/Units 22:52 Troponin I < 0.03 (< 0.04) ng/mL Liver Function 01/25/19 Range/Units 22:52 Total Bilirubin 0.9 (0.3-1.0) mg/dL AST 68 H (13-39) Units/L ALT 132 H (7-52) Units/L Alkaline Phosphatase 70 (34-104) Units/L Albumin 4.7 (3.5-5.7) g/dL Urine 01/26/19 Range/Units 00:02 Urine Color Dark Yellow (Yellow) Urine Clarity Cloudy A (Clear) Urine pH 5.0 (5.0-8.0) pH Units Ur Specific [place] 1.028 H (1.010-1.025) Urine Protein 100 H (Neg-Trace) mg/dL Urine Glucose (UA) Normal (Normal) mg/dL - Impressions ITS Impressions Abdomen/Pelvis CT 01/26/19 00:00 IMPRESSION: Large volume of free air in the peritoneal cavity consistent with a perforated viscus. Multiple small bubbles of air adjacent to the stomach suggest possible gastric perforation. There is no significant free fluid. Mild patchy airspace disease in the medial posterior right lung base. This may represent pneumonia, possibly from aspiration. Clinical correlation recommended. Critical results were called by Dr. Ji Parham MD to Dr. Barrios On 01/26/2019 at 02:17. D/ / Ji Parham MD / Ji Parham MD Interpreting Provider: Ji Parham MD Chest X-Ray 01/26/19 00:00 IMPRESSION: 1. Large amount of free air beneath hemidiaphragms, please see CT abdomen and pelvis for further detail. 2. Mild bilateral perihilar prominence which may relate to central vascular congestion, bronchitis or other infectious/inflammatory process. D/ / Jos Lopes MD / Jos Lopes MD Interpreting Provider: Jos Lopes MD Head CT 01/26/19 00:00 IMPRESSION: No acute intracranial abnormality on this study degraded by motion. D/ / Ji Parham MD / Ji Parham MD Interpreting Provider: Ji Parham MD - Assessment and Plan (1) Intra-abdominal free air of unknown etiology Current Visit: Yes Status: Acute Assessment and plan: Patient presented complaining of abdominal pain after being found unresponsive by EMS and given Narcan. She is found to have overdosed on heroin, she had been on a reported 3 day mess tender. In the ED she complaining of abdominal pain and imaging demonstrated evidence of perforation. General surgery Dr. Rivers evaluate the patient whom determined that with her clinical status would not be safe to patient general anesthetic at this time but will reevaluate later for exploratory laparotomy. Will treat for gut abraham with gram-negative and anaerobic coverage antibiotics including fungal coverage. -Afebrile, hemodynamically stable -WBC 9.1 -lactic acid 0.4 -chest x-ray demonstrating large amount of free air beneath hemidiaphragm. -Abdomen/pelvis CT demonstrated large volume of free air in the peritoneal cavity consistent with perforated viscous. Possible gastric perforation due to multiple bubbles adjacent to stomach. Now patchy airspace disease in medial posterior right lung base may represent pneumonia, possible from aspiration. plan -general surgery following, will reevaluate for exploratory laparotomy -continue IV fluconazole with a loading dose of 400 mg and then continue 200 mg -continue Zosyn with a loading dose of 4.5 g and then transition to 3.375 g Q8H -continue IV fluids lactated ringers 125ml/hr -continue Protonix drip as CT was suspicious for possible gastric perforation -continue NG tube -continue Bowling catheter -NPO (2) Elevated transaminase level Current Visit: Yes Status: Acute Assessment and plan: Patient was known IV drug use history having elevated transaminase level. Unknown if she has hepatitis C, the highly suspicious given history. -AST 68 -ALT 132 -no evidence of cirrhosis on abdominal CT. plan -will repeat LFT -hepatic panel pending (3) Aspiration pneumonia Current Visit: Yes Status: Acute Assessment and plan: CT abdomen and pelvis demonstrated findings concerning for possible aspiration pneumonia in the setting of IV drug overdose. -Afebrile, hemodynamically stable, saturating well on on room air -Abdomen/pelvis CT demonstrated large volume of free air in the peritoneal cavity consistent with perforated viscous. Possible gastric perforation due to multiple bubbles adjacent to stomach. Now patchy airspace disease in medial posterior right lung base may represent pneumonia, possible from aspiration. plan: -patient is currently on antibiotics for gastric perforation that would be sufficient for aspiration pneumonia. -Continue supplemental oxygen as needed Qualifiers: Aspiration pneumonia type: unspecified Laterality: right Lung location: middle lobe of lung Qualified Code(s): J69.0 - Pneumonitis due to inhalation of food and vomit (4) Drug overdose Current Visit: Yes Status: Acute Assessment and plan: EMS found the patient unresponsive after a three-day meth lemus, with additionally taking heroin. EMS gave her 10 mg Narcan after which she was alert. -Urine drug screen was positive for amphetamines, benzodiazepines, marijuana. -Head CT negative for acute intracranial abnormality. -Narcan PRN Qualifiers: Encounter type: initial encounter Injury intent: accidental or unintentional Qualified Code(s): T50.901A - Poisoning by unspecified drugs, medicaments and biological substances, accidental (unintentional), initial encounter (5) Hypokalemia Current Visit: Yes Status: Acute Assessment and plan: Patient with hypokalemia with a potassium of 3.3 on admission. -Will check magnesium level -40 mg IV potassium ordered (6) Polysubstance abuse Current Visit: Yes Status: Acute Assessment and plan: Patient with substance abuse. Urine drug screen was positive for amphetamines, benzodiazepines, marijuana. Patient is known history of using methamphetamine and heroin. (7) DVT prophylaxis Current Visit: Yes Status: Acute Assessment and plan: Heparin SQ - Time Spent With Patient Total time spent is greater than 50% in coordination of care (as documented) at patient's floor/unit and/or counseling patient: <Haroon Pan - Last Filed: 01/26/19 06:43> Date of Encounter: 01/26/19 All Systems PM: A 10-system review of systems was performed and is negative for pertinent findings except as documented above in the HPI. - Constitutional Vitals: Temp Pulse Resp BP Pulse Ox 96.6 F L 70 18 130/96 98 01/26/19 04:15 01/26/19 05:00 01/26/19 05:00 01/26/19 05:00 01/26/19 05:00 Internal Med - H&P Results - Labs CBC & Chem 7: 01/25/19 22:52 01/25/19 22:52 Labs: Short CBC 01/25/19 Range/Units 22:52 WBC 9.1 (4.3-11.1) K/mcL Hgb 12.4 (11.5-15.4) g/dL Hct 38.1 (35.3-44.9) % Plt Count 257 (140-400) K/mcL Neutrophils # 6.7 (1.6-8.9) K/mcL BMP 01/25/19 22:52 Sodium 139 Potassium 3.3 L Chloride 102 Carbon Dioxide 25 BUN 12 Creatinine 0.93 Glucose 210 H Calcium 9.6 Cardiac Enzymes 01/25/19 Range/Units 22:52 Troponin I < 0.03 (< 0.04) ng/mL Liver Function 01/25/19 Range/Units 22:52 Total Bilirubin 0.9 (0.3-1.0) mg/dL AST 68 H (13-39) Units/L ALT 132 H (7-52) Units/L Alkaline Phosphatase 70 (34-104) Units/L Albumin 4.7 (3.5-5.7) g/dL Urine 01/26/19 Range/Units 00:02 Urine Color Dark Yellow (Yellow) Urine Clarity Cloudy A (Clear) Urine pH 5.0 (5.0-8.0) pH Units Ur Specific [place] 1.028 H (1.010-1.025) Urine Protein 100 H (Neg-Trace) mg/dL Urine Glucose (UA) Normal (Normal) mg/dL - Impressions ITS Impressions Abdomen/Pelvis CT 01/26/19 00:00 IMPRESSION: Large volume of free air in the peritoneal cavity consistent with a perforated viscus. Multiple small bubbles of air adjacent to the stomach suggest possible gastric perforation. There is no significant free fluid. Mild patchy airspace disease in the medial posterior right lung base. This may represent pneumonia, possibly from aspiration. Clinical correlation recommended. Critical results were called by Dr. Ji Parham MD to Dr. Barrios On 01/26/2019 at 02:17. D/ / Ji Parham MD / Ji Parham MD Interpreting Provider: Ji Parham MD Chest X-Ray 01/26/19 00:00 IMPRESSION: 1. Large amount of free air beneath hemidiaphragms, please see CT abdomen and pelvis for further detail. 2. Mild bilateral perihilar prominence which may relate to central vascular congestion, bronchitis or other infectious/inflammatory process. D/ / Jos Lopes MD / Jos Lopes MD Interpreting Provider: Jos Lopes MD Head CT 01/26/19 00:00 IMPRESSION: No acute intracranial abnormality on this study degraded by motion. D/ / Ji Parham MD / Ji Parham MD Interpreting Provider: Ji Parham MD - Assessment and Plan (1) Intra-abdominal free air of unknown etiology Current Visit: Yes Status: Acute (2) DVT prophylaxis Current Visit: Yes Status: Acute (3) Polysubstance abuse Current Visit: Yes Status: Acute (4) Hypokalemia Current Visit: Yes Status: Acute - Time Spent With Patient Total time spent is greater than 50% in coordination of care (as documented) at patient's floor/unit and/or counseling patient: - Attending Attestation I performed a history and physical exam of the patient and discussed management with the resident. I reviewed the resident's note and agree with the documented findings and plan of care. Estelle Worthy is a 33 year old woman with substance use disorder who was brought to the ER reportedly after drug intoxication and seeming overdose. She woke up with naloxone administration. She was subsequently given lorazepam due to her agitation and was noted moaning and groaning, seemingly uncomfortable in bed. She was seen to have a distended abdomen and chest x-ray revealed free air under her diaphragm. A CT scan done depicted the pneumoperitoneum, suspected due to a gastric perforation. Her physical exam is remarkable for abdominal distension and multiple ecchymotic lesions over her face and extremities. She is somnolent and not responsive to verbal stimuli. She has been evaluated by surgery and will require an exploratory laparotomy. In the interim, will admit to ICU for close monitoring. Insert NG tube and connect to suction. Start empiric antimicrobials for possible secondary peritonitis. Keep NPO. Await further plans by the surgical team. DVT prophylaxis. SHARON ARGUETA.
[2019-01-26] MEDS: Fluconazole 400 MG/200 ML 400 MG/200 ML BAG IVPB SCH ×2 (04:28→06:40)
[2019-01-26 04:30] LABS: Hepatitis B Core IgM Nonreactive (Nonreactive)
[2019-01-26 04:31] LABS: Hepatitis A Antibody IgM Nonreactive (Nonreactive)
[2019-01-26] MEDS: Ringers Solution, Lactated 1,000 ML IVC SCH ×2 (04:31→13:44)
[2019-01-26] MEDS: Pantoprazole 40 MG in 0.9 % Sodium Chloride Mini Bag 100 ML IVC SCH ×5 (04:31→19:46)
[2019-01-26] MEDS ORDERED: Potassium Chloride 40 MEQ, Lidocaine 1% 2 ML in 0.9 % Sodium Chloride 500 ML IVPB ONE (05:28)
[2019-01-26 05:46] LABS: Hepatitis C Virus Antibody Reactive (Nonreactive)
[2019-01-26] MEDS ORDERED: *HR* Heparin 5,000 UNIT/ML VIAL SQ SCH (06:00)
[2019-01-26 06:56] LABS: Basophils % 0.3 %; Hematocrit 33.1 % (35.3-44.9); Immature Granulocytes % 0.3 % (0-4); Lymphocytes # 1.4 K/mcL (0.6-4.6); Lymphocytes % 21.3 %; Mean Corpuscular HGB Conc 32.6 g/dL (31.6-35.5); Mean Corpuscular Volume 91.9 fL (83.0-100.0); Mean Platelet Volume 9.7 fL (9.4-12.4); Monocytes # 0.3 K/mcL (0.0-1.3); Monocytes % 5.4 %; Neutrophils # 4.6 K/mcL (1.6-8.9); Platelet Count 170 K/mcL (140-400); Red Cell Distribution Width 13.7 % (11.5-14.5); Segmented Neutrophils % 72.7 %; White Blood Count 6.3 K/mcL (4.3-11.1)
[2019-01-26 06:59] LABS: Hemoglobin 10.8 g/dL (11.5-15.4)
[2019-01-26 07:16] LABS: Alanine Aminotransferase 101 Units/L (7-52); Albumin 3.8 g/dL (3.5-5.7); Albumin/Globulin Ratio 1.5 (1.1-2.2); Alkaline Phosphatase 54 Units/L (34-104); Aspartate Amino Transferase 49 Units/L (13-39); BUN/Creatinine Ratio 20 (6-26); Bilirubin,Direct 0.2 mg/dL (0.0-0.2); Bilirubin,Indirect 0.6 mg/dL (0.0-1.2); Bilirubin,Total 0.8 mg/dL (0.3-1.0); Blood Urea Nitrogen 12 mg/dL (6-20); Calcium 8.4 mg/dL (8.6-10.3); Carbon Dioxide 25 mEq/L (23-29); Chloride 107 mEq/L (98-107); Globulin 2.6 g/dL (2.4-3.5); Glucose 107 mg/dL (70-105); Osmolality,Calculated 296 (280-300); Potassium 3.8 mEq/L (3.5-5.1); Sodium 143 mEq/L (136-145); Total Protein 6.4 g/dL (6.4-8.9); eGFR For African Americans > 60 (> 60); eGFR For Non-African Americans > 60 (> 60)
--- NOTE | 2019-01-26 09:25 | Internal Med Progress Note ---
<Vasile Womack S - Last Filed: 01/26/19 14:45> Hospitalist Progress Note - Encounter Date of Encounter: 01/26/19 Time of Encounter: 09:23 - Subjective Interval History: Ms. Worthy is a 33-year-old female with history of polysubstance abuse who presented after being found obtunded from heroin overdose. The patient was found to have free intraperitoneal air on CT scan, and general surgery was consulted for urgent laparotomy. on initial evaluation, patient was deemed to have too severe a risk of undergoing general anesthesia due to her recent excessive substance abuse and recent administration of narcan. On reevaluation today, patient was deemed decreased risk for adverse events in response to anesthesia, and was taken for urgent surgery. A perforated gastric ulcer was discovered and repaired. She denies any chest pain, however reports some shortness of breath secondary to abdominal pain with deep inspiration. She also reports dry mouth, otherwise denies any complaints other than her abdominal pain, and is asking for more pain medication because of that pain. Review of systems and further history is limited by patient's partial obtundation. of note, initial testing results included, positive hep C antibody and a urinalysis and urine drug screen was positive for amphetamines, benzodiazepines, marijuana, negative for opiates. Patient states she may have been taking something other than heroin, possibly fentanyl. we will pursue workup and treatment of hep C after the patient has improved to the point that she is able to discuss it, and will obtain urine opiates screen to identify what she has been injecting. Other past medical history is only significant for depression, patient is not taking any antidepressants at home, we will continue to monitor her mental status with daily exam surgical history is significant for 3 cesarian sections. - Exam Vitals: Temp Pulse Resp BP Pulse Ox 96.9 F L 74 20 131/100 99 01/26/19 08:32 01/26/19 08:00 01/26/19 08:00 01/26/19 08:00 01/26/19 08:00 Exam: Gen: Patient is excessively somnolent on exam, however appears simultaneously in severe distress, Head: Normocephalic, atraumatic Eyes: EOMI, no scleral icterus ENT: Mucous membranes dry, very poor dentition CV: S1-S2 present, regular rhythm, no murmurs rubs or gallops Pulm: CTAB, not tachypneic, but respirations are shallow. no respiratory distress, no increased work of breathing Abd: significantly distended and tight but not rigid, hyperresonant to percussion with tenderness to percussion. EXT: Grossly intact motor strength in all 4 extremities, no lower extremity edema, no distal cyanosis or pallor Skin: Warm, dry, slightly pale, no rashes noted. Neuro: Cranial nerves II-XII grossly intact, no focal nurologic deficits Psych: Patient is somnolent but arousable, opens eyes to voice, moves all 4 extremities spontaneously, is unsure what exactly occured last night, but is not confused at present, answers questions appropriately, though she drifts off while responding to questions occasionally. - Assessment and Plan (1) Polysubstance abuse Current Visit: Yes Status: Chronic Assessment and Plan: Patient presented after 3 days of alternatively using meth and heroin, urine drug screen was found to be negative for opiates and patient states she is not fully sure of what she was injecting, stating it may have been fentanyl. patient is alternatingly extremely somnolent and in severe pain on examination, seemingly from acute abdomen with significant narcotic pain medication. we will investigate patient's desire for assistance with drug cessation at a more appr opriate time. we will check urine for synthetic opiates (2) Perforated gastric ulcer Current Visit: Yes Status: Acute Assessment and Plan: Patient was found to have significant free air in the abdomen on imaging in the ED, underwent exploratory laparotomy with repair of perforated gastric ulcer today. Postop care, including dietary orders, pain medications and fluid resuscitation per recommendations of general surgery (3) Overdose Current Visit: Yes Status: Acute Assessment and Plan: Patient has 3 days of polysubstance abuse, including heroin and likely fentanyl Monitor for signs and symptoms of withdrawal, vital signs abnormalities, mental status changes (4) Hepatitis C antibody positive in blood Current Visit: Yes Status: Acute Assessment and Plan: Current IDSA/AASLD recommendations are that treatment should not be witheld from those who currently use illicit drugs, provided that they wish to be treated, are willing and able to maintain close monitoring, and practice contraception. Quantitative Hep C PCR with reflex genotyping has been ordered in anticipation of therapy for Hep C, and GI or Hepatology will be consulted with the results. DVT Prophylaxis: sub q heparin - Time Spent with Patient Total time spent is greater than 50% in coordination of care (as documented) at patient's floor/unit and/or counseling patient: Internal Medicine: Result - Labs CBC & Chem 7: 01/26/19 06:37 01/26/19 06:37 Labs: Short CBC 01/25/19 01/26/19 Range/Units 22:52 06:37 WBC 9.1 6.3 (4.3-11.1) K/mcL Hgb 12.4 10.8 L D (11.5-15.4) g/dL Hct 38.1 33.1 L (35.3-44.9) % Plt Count 257 170 (140-400) K/mcL Neutrophils # 6.7 4.6 (1.6-8.9) K/mcL BMP 01/25/19 01/26/19 22:52 06:37 Sodium 139 143 Potassium 3.3 L 3.8 Chloride 102 107 Carbon Dioxide 25 25 BUN 12 12 Creatinine 0.93 0.59 L Glucose 210 H 107 H Calcium 9.6 8.4 L Cardiac Enzymes 01/25/19 Range/Units 22:52 Troponin I < 0.03 (< 0.04) ng/mL Liver Function 01/25/19 01/26/19 Range/Units 22:52 06:37 Total Bilirubin 0.9 0.8 (0.3-1.0) mg/dL Direct Bilirubin 0.2 (0.0-0.2) mg/dL AST 68 H 49 H (13-39) Units/L ALT 132 H 101 H (7-52) Units/L Alkaline Phosphatase 70 54 (34-104) Units/L Albumin 4.7 3.8 (3.5-5.7) g/dL Urine 01/26/19 Range/Units 00:02 Urine Color Dark Yellow (Yellow) Urine Clarity Cloudy A (Clear) Urine pH 5.0 (5.0-8.0) pH Units Ur Specific [place] 1.028 H (1.010-1.025) Urine Protein 100 H (Neg-Trace) mg/dL Urine Glucose (UA) Normal (Normal) mg/dL - Impressions Impressions Abdomen/Pelvis CT 01/26/19 00:00 IMPRESSION: Large volume of free air in the peritoneal cavity consistent with a perforated viscus. Multiple small bubbles of air adjacent to the stomach suggest possible gastric perforation. There is no significant free fluid. Mild patchy airspace disease in the medial posterior right lung base. This may represent pneumonia, possibly from aspiration. Clinical correlation recommended. Critical results were called by Dr. Ji Parham MD to Dr. Barrios On 01/26/2019 at 02:17. D/ / Ji Parham MD / Ji Parham MD Interpreting Provider: Ji Parham MD Chest X-Ray 01/26/19 00:00 IMPRESSION: 1. Large amount of free air beneath hemidiaphragms, please see CT abdomen and pelvis for further detail. 2. Mild bilateral perihilar prominence which may relate to central vascular congestion, bronchitis or other infectious/inflammatory process. D/ / Jos Lopes MD / Jos Lopes MD Interpreting Provider: Jos Lopes MD Head CT 01/26/19 00:00 IMPRESSION: No acute intracranial abnormality on this study degraded by motion. D/ / Ji Parham MD / Ji Parham MD Interpreting Provider: Ji Parham MD Consult Discharge Plan - Plan Referrals: NONE,PCP [Primary Care Provider] - <Stuart Noble - Last Filed: 01/26/19 18:24> Hospitalist Progress Note - Encounter Date of Encounter: 01/26/19 - Exam Vitals: Temp Pulse Resp BP Pulse Ox 97.3 F L 79 18 109/81 98 01/26/19 16:00 01/26/19 18:00 01/26/19 18:00 01/26/19 18:00 01/26/19 18:00 - Assessment and Plan (1) Intra-abdominal free air of unknown etiology Current Visit: Yes Status: Acute (2) DVT prophylaxis Current Visit: Yes Status: Acute (3) Polysubstance abuse Current Visit: Yes Status: Chronic (4) Hypokalemia Current Visit: Yes Status: Acute - Time Spent with Patient Total time spent is greater than 50% in coordination of care (as documented) at patient's floor/unit and/or counseling patient: Internal Medicine: Result - Labs CBC & Chem 7: 01/26/19 06:37 01/26/19 06:37 Labs: Short CBC 01/25/19 01/26/19 Range/Units 22:52 06:37 WBC 9.1 6.3 (4.3-11.1) K/mcL Hgb 12.4 10.8 L D (11.5-15.4) g/dL Hct 38.1 33.1 L (35.3-44.9) % Plt Count 257 170 (140-400) K/mcL Neutrophils # 6.7 4.6 (1.6-8.9) K/mcL BMP 01/25/19 01/26/19 22:52 06:37 Sodium 139 143 Potassium 3.3 L 3.8 Chloride 102 107 Carbon Dioxide 25 25 BUN 12 12 Creatinine 0.93 0.59 L Glucose 210 H 107 H Calcium 9.6 8.4 L Cardiac Enzymes 01/25/19 Range/Units 22:52 Troponin I < 0.03 (< 0.04) ng/mL Liver Function 01/25/19 01/26/19 Range/Units 22:52 06:37 Total Bilirubin 0.9 0.8 (0.3-1.0) mg/dL Direct Bilirubin 0.2 (0.0-0.2) mg/dL AST 68 H 49 H (13-39) Units/L ALT 132 H 101 H (7-52) Units/L Alkaline Phosphatase 70 54 (34-104) Units/L Albumin 4.7 3.8 (3.5-5.7) g/dL Urine 01/26/19 Range/Units 00:02 Urine Color Dark Yellow (Yellow) Urine Clarity Cloudy A (Clear) Urine pH 5.0 (5.0-8.0) pH Units Ur Specific [place] 1.028 H (1.010-1.025) Urine Protein 100 H (Neg-Trace) mg/dL Urine Glucose (UA) Normal (Normal) mg/dL - Impressions Impressions Abdomen/Pelvis CT 01/26/19 00:00 IMPRESSION: Large volume of free air in the peritoneal cavity consistent with a perforated viscus. Multiple small bubbles of air adjacent to the stomach suggest possible gastric perforation. There is no significant free fluid. Mild patchy airspace disease in the medial posterior right lung base. This may represent pneumonia, possibly from aspiration. Clinical correlation recommended. Critical results were called by Dr. Ji Parham MD to Dr. Barrios On 01/26/2019 at 02:17. D/ / Ji Parham MD / Ji Parham MD Interpreting Provider: Ji Parham MD Chest X-Ray 01/26/19 00:00 IMPRESSION: 1. Large amount of free air beneath hemidiaphragms, please see CT abdomen and pelvis for further detail. 2. Mild bilateral perihilar prominence which may relate to central vascular congestion, bronchitis or other infectious/inflammatory process. D/ / Jos Lopes MD / Jos Lopes MD Interpreting Provider: Jos Lopes MD Head CT 01/26/19 00:00 IMPRESSION: No acute intracranial abnormality on this study degraded by motion. D/ / Ji Parham MD / Ji Parham MD Interpreting Provider: Ji Parham MD - Attending Attestation I examined this patient and my medical decision-making was reviewed with the Resident Physician on 01/26/19. I agree with the documented findings, disposition and treatment plan as described except to the extent set forth below. Ms Worthy was admitted earlier this AM with concern for OD and perforated viscus. She is currently in OR. Will continue to follow. <Vasile Womack - Last Filed: 01/26/19 14:45> (3) Overdose Qualifiers: Qualified Code(s): T50.901A - Poisoning by unspecified drugs, medicaments and biological substances, accidental (unintentional), initial encounter
--- NOTE | 2019-01-26 10:00 | Anesthesia Evaluation PreOp ---
Date of Encounter: 01/26/19 Time of Encounter: 09:58 - Past History Planned Operation: exp lap Cardiac History: Denies any Significant Hx Pulmonary History: Smoker, Other (possible aspiration pneumonia) [employer] History: Other (anxiety depression previous psych hospitalizations) Other Medical History: Other (polysubstance abuse) Anesthesia History: No Prior Anesthetic Complications, Past Anesthesia (c sections) : No Test: Negative Alcohol Use: occasionally Drug use: opiates, marijuana, methamphetamine (three day meth lemus with heroin for sleeping), IV Drug Use, other Medications and Allergies No Known Home Drugs 01/25/19 [History] Allergy/AdvReac Type Severity Reaction Status Date / Time No Known Allergies Allergy Verified 01/25/19 22:55 - Meds/Allergy Pre-op Review Medications Reviewed: Yes Allergies Reviewed: Yes Beta Blockers on Current Med List: No Anesthesia Results - Labs 01/26/19 06:37 01/26/19 06:37 Laboratory Tests 01/25/19 01/26/19 01/26/19 22:52 00:02 03:10 Sodium Potassium Chloride Carbon Dioxide BUN Creatinine Glucose Lactic Acid 0.4 L Serum , Qual Negative Ur Amphetamines Screen Positive H U Benzodiazepines Scrn Positive H U Marijuana (THC) Screen Positive H 01/26/19 06:37 Sodium 143 Potassium 3.8 Chloride 107 Carbon Dioxide 25 BUN 12 Creatinine 0.59 L Glucose 107 H Lactic Acid Serum , Qual Ur Amphetamines Screen U Benzodiazepines Scrn U Marijuana (THC) Screen - Imaging EKG: report reviewed, image reviewed Anesthesia Exam Vital Signs/O2 Sat, Most Current Temp Pulse Resp BP Pulse Ox 96.9 F L 75 19 141/103 97 01/26/19 08:32 01/26/19 10:00 01/26/19 10:00 01/26/19 10:00 01/26/19 10:00 - HEENT Pupil (Motor): Pupils equal, EOMI Mallampati: II Oral Opening: Greater than 3 - [employer] LOC: Oriented [employer] Motor: Normal RUE, Normal LUE, Normal RLE, Normal LLE, Normal Face [employer] Sensory: Normal: RUE, LUE, RLE, LLE, Face - Cardiac Rhythm: Regular JVD: No - Pulmonary Breath Sounds: bilateral Clear Respiratory Effort: Symmetrical Anesthesia Assess/Plan ASA Score: 3, E Level of consciousness: Cooperative, Oriented, Agitated, Restless Anesthetic Plan: General Monitoring Plan: Standard Monitors Recovery Plan: PACU
--- NOTE | 2019-01-26 10:16 | AcuteCare Surgery Consult Note ---
Date of Encounter: 01/26/19 Time of Encounter: 09:20 Assessment and Plan (1) Intra-abdominal free air of unknown etiology Current Visit: Yes Status: Acute (2) Perforated abdominal viscus Current Visit: Yes Status: Acute Discussed with patient her diagnosis of acute perforation of abdominal viscus. Recommend exploratory laparotomy with repair of perforated abdominal viscus. Pt Pt is hemodynamically stable in ICU after OD. Discussed procedure, risks and benefits of surgery. Possible complications include but, are not limited to bleeding or infection. She understands and wishes to proceed jermaine as advised. NPO/NGT. IV abx. (3) Overdose Current Visit: Yes Status: Acute Stable post-narcan. Qualifiers: Qualified Code(s): T50.901A - Poisoning by unspecified drugs, medicaments and biological substances, accidental (unintentional), initial encounter History of Present Illness Consult date: 01/26/19 Reason for consult: abdominal pain Requesting physician: Armando Lei History of present illness: This 33 y/o female presented to [facility] after and overdose of heroin and meth. She presented in an obtunded state. She revived after narcan administration. When she became conscious, she started complaining of severe abdominal pain. She underwent abd/pelvis CT that reveals free air and suspected gastric perforation. Pt fall asleep easily but, is able to answer questions. She denies previous hx of abdominal pain, epigastric pain or CP. She denies a hx of heartburn or regurgitation. She reports occasional nausea but, denies vomiting or hematemesis. Last BM uncertain. Denies fever. Past Med Surg Social Fam HX - Past Medical History Medical history: no medical history, IV drug use Psychiatric history: anxiety, depression, previous psychiatric hospitalization - Past Surgical History Surgical History: non-contributory Additional surgical history: C-sections - Social History Smoking Status: Current every day smoker Smokeless Tobacco Status: No Alcohol use: occasionally Drug use: opiates, marijuana, methamphetamine (three day meth lemus with heroin for sleeping), IV Drug Use, other - Family History Father Hx Family Cardiac Disorders: Yes (heart disease) Medications and Allergies No Known Home Drugs 01/25/19 [History] Allergy/AdvReac Type Severity Reaction Status Date / Time No Known Allergies Allergy Verified 01/25/19 22:55 Review of Systems All systems PM: The remainder of the systems were reviewed and are negative - Constitutional fatigue, lethargy, no anorexia, no fever(s), no malaise, no night sweats - EENT Nose, mouth and throat: no dysphagia, no nasal congestion, no nasal discharge, no sinus pain, no sinus pressure, no sore throat - Cardiovascular no chest pain, no diaphoresis, no dyspnea, no edema - Respiratory no cough, no dyspnea, no wheezing - Gastrointestinal abdominal pain, bloating, nausea, no constipation, no diarrhea, no heartburn, no vomiting - Genitourinary Genitourinary: no dysuria, no flank pain, no urinary urgency - Musculoskeletal back pain, no joint swelling, no limited range of motion, no neck pain - Integumentary no dry skin, no pruritus, no rash, no wounds, no jaundice - Neurological memory loss, no dizziness, no focal weakness, no weakness - Psychiatric anxiety, depression, no suicidal ideation - Endocrine fatigue - Hematologic/Lymphatic no easy bleeding, no easy bruising General Surgery Exam Initial Vital Signs Temp Pulse Resp BP Pulse Ox 98.8 F 122 20 153/111 100 01/25/19 22:50 01/25/19 22:50 01/25/19 22:50 01/25/19 22:50 01/25/19 22:50 - General physical appearance well nourished, no distress, moderate pain. negative: jaundice - Eyes PERRL, normal ocular movement. negative: icteric - ENT no congestion, dry mucosa. negative: nasal discharge - Neck no masses, trachea midline, no lymphadectomy, no venous distension - Respiratory normal respiratory effort, clear to auscultation - Cardiovascular Cardiovascular exam: Present: RRR. Absent: JVD - Abdomen Abdomen general surgery: Present: bowel sounds present (hypoactive), soft, distended, tender, guarding, rebound, rigid Abdominal Tenderness: Present: RUQ, LUQ - Genitourinary Present: normal external genitalia - Integumentary Integumentary general surgery: Present: warm and dry - Neurologic Present: CN 2-12 grossly intact, normal coordination - Musculoskeletal Present: normal posture - Psychiatric Psychiatric general surgery: Present: A&Ox3, appropriate Exam Initial Vital Signs Temp Pulse Resp BP Pulse Ox 98.8 F 122 20 153/111 100 01/25/19 22:50 01/25/19 22:50 01/25/19 22:50 01/25/19 22:50 01/25/19 22:50 Results - Labs 01/26/19 06:37 01/26/19 06:37 Abnormal lab results RBC 3.60 M/mcL (3.82-4.97) L 01/26/19 06:37 Hgb 10.8 g/dL (11.5-15.4) L D 01/26/19 06:37 Hct 33.1 % (35.3-44.9) L 01/26/19 06:37 Potassium 3.3 mEq/L (3.5-5.1) L 01/25/19 22:52 Creatinine 0.59 mg/dL (0.60-1.20) L 01/26/19 06:37 Glucose 107 mg/dL (70-105) H 01/26/19 06:37 POC Glucose 102 mg/dL (70-99) H 01/26/19 04:15 Lactic Acid 0.4 mmol/L (0.5-2.2) L 01/26/19 03:10 Calcium 8.4 mg/dL (8.6-10.3) L 01/26/19 06:37 AST 49 Units/L (13-39) H 01/26/19 06:37 ALT 101 Units/L (7-52) H 01/26/19 06:37 Lipase 6 Units/L (11-82) L 01/25/19 22:52 Urine Clarity Cloudy (Clear) A 01/26/19 00:02 Ur Specific [place] 1.028 (1.010-1.025) H 01/26/19 00:02 Urine Protein 100 mg/dL (Neg-Trace) H 01/26/19 00:02 Urine Blood Trace (Negative) H 01/26/19 00:02 Urine Bilirubin Small (Negative) H 01/26/19 00:02 Urine Microscopic WBC 5-15 per hpf (0-3) H 01/26/19 00:02 Ur Squamous Epith Cells Many per lpf (None-Few) H 01/26/19 00:02 Hyaline Casts Moderate per lpf (None-Few) H 01/26/19 00:02 Ur Culture Indicated? YES (NO) A 01/26/19 00:02 Salicylates < 2.5 mg/dL (15.0-30.0) L 01/25/19 22:53 Acetaminophen < 10 mcg/mL (10-20) L 01/25/19 22:53 Ur Amphetamines Screen Positive ng/mL (Kvlqkt=4443) H 01/26/19 00:02 U Benzodiazepines Scrn Positive ng/mL (Eimdiv=190) H 01/26/19 00:02 U Marijuana (THC) Screen Positive ng/mL (Cutoff = 50) H 01/26/19 00:02 Hepatitis C Ab Screen Reactive (Nonreactive) H 01/25/19 23:14 Diabetes panel 01/25/19 01/26/19 Range/Units 22:52 06:37 Sodium 139 143 (136-145) mEq/L Potassium 3.3 L 3.8 (3.5-5.1) mEq/L Chloride 102 107 (98-107) mEq/L Carbon Dioxide 25 25 (23-29) mEq/L BUN 12 12 (6-20) mg/dL Creatinine 0.93 0.59 L (0.60-1.20) mg/dL Glucose 210 H 107 H (70-105) mg/dL Calcium 9.6 8.4 L (8.6-10.3) mg/dL AST 68 H 49 H (13-39) Units/L ALT 132 H 101 H (7-52) Units/L Alkaline Phosphatase 70 54 (34-104) Units/L Albumin 4.7 3.8 (3.5-5.7) g/dL Calcium panel 01/25/19 01/26/19 Range/Units 22:52 06:37 Calcium 9.6 8.4 L (8.6-10.3) mg/dL Albumin 4.7 3.8 (3.5-5.7) g/dL Pituitary panel 01/25/19 01/26/19 Range/Units 22:52 06:37 Sodium 139 143 (136-145) mEq/L Potassium 3.3 L 3.8 (3.5-5.1) mEq/L Chloride 102 107 (98-107) mEq/L Carbon Dioxide 25 25 (23-29) mEq/L BUN 12 12 (6-20) mg/dL Creatinine 0.93 0.59 L (0.60-1.20) mg/dL Glucose 210 H 107 H (70-105) mg/dL Calcium 9.6 8.4 L (8.6-10.3) mg/dL Adrenal panel 01/25/19 01/26/19 Range/Units 22:52 06:37 Sodium 139 143 (136-145) mEq/L Potassium 3.3 L 3.8 (3.5-5.1) mEq/L Chloride 102 107 (98-107) mEq/L Carbon Dioxide 25 25 (23-29) mEq/L BUN 12 12 (6-20) mg/dL Creatinine 0.93 0.59 L (0.60-1.20) mg/dL Glucose 210 H 107 H (70-105) mg/dL Calcium 9.6 8.4 L (8.6-10.3) mg/dL Total Bilirubin 0.9 0.8 (0.3-1.0) mg/dL AST 68 H 49 H (13-39) Units/L ALT 132 H 101 H (7-52) Units/L Alkaline Phosphatase 70 54 (34-104) Units/L Albumin 4.7 3.8 (3.5-5.7) g/dL All other labs normal. - Imaging CT scan - abdomen: image reviewed (There is a large volume of free air in the peritoneal cavity. There are multiple small bubbles of air adjacent to the stomach.) CT scan - pelvis: image reviewed Consult Discharge Plan - Plan Referrals: NONE,PCP [Primary Care Provider] -
[2019-01-26] MEDS ORDERED: *HR* HYDROmorphone (PF) 1 MG/ML SYRINGE IVP PRN (10:28)
[2019-01-26] MEDS ORDERED: *HR* Meperidine 25 MG/ML SYRINGE IVP PRN (10:28)
[2019-01-26] MEDS ORDERED: *HR* Promethazine 25 MG/ML VIAL IVP PRN ×2 (10:28→14:51)
[2019-01-26] MEDS ORDERED: *HR* FentaNYL (PF) 100 MCG/2 ML VIAL ONE ×2 (10:30→11:41)
[2019-01-26] MEDS ORDERED: *HR* Propofol 200 MG/20 ML VIAL IVP ONE (10:30)
[2019-01-26] MEDS ORDERED: Lidocaine -MPF 2% 2 ML VIAL ONE (10:31)
[2019-01-26] MEDS ORDERED: Dexmedetomidine HCl 400 MCG/100 ML MLS IVC ONE (10:39)
[2019-01-26] MEDS ORDERED: *HR* Magnesium Sulfate 1 GM/2 ML VIAL ONE (10:41)
[2019-01-26] MEDS ORDERED: Dexamethasone 4 MG/ML VIAL ONE (11:42)
[2019-01-26] MEDS ORDERED: Ondansetron 4 MG/2 ML VIAL ONE (11:42)
[2019-01-26] MEDS ORDERED: Piperacillin/Tazobactam 3.375 GM in 0.9 % Sodium Chloride Mini Bag 100 ML IVPB SCH (12:00)
--- NOTE | 2019-01-26 13:41 | Operative Note ---
Date of procedure: 01/26/19 Pre-op diagnosis: acute abdomen with perforated abdominal viscus Post-op diagnosis: same (perforated gastric ulcer) Procedure: 1) Exploratory Laparotomy with 2) Repair of perforated gastric ulcer with Valentino Patch Complications: none Anesthesia: GETA Surgeon: Martha Esquivel Was there an assistant professor of mathematics present: No Estimated blood loss (cc): 25 Specimen: none Condition: stable Disposition: ICU Procedure in Detail: This 33-year-old female with perforated abdominal viscus is taken to the operating room urgently. She is placed in the supine position. Her abdominal wall is prepped and draped in the usual sterile fashion. An upper midline incision is made using a 10 scalpel blade. Subcutaneous tissues are dissected with electrocautery. Anterior rectus fascia was also divided using electrocautery. Peritoneum was elevated and divided. Upon entering the intra- abdominal cavity a large volume of gas escaped. No bloody, feculent or bile stained fluid is encountered. Upon initial visual inspection, a perforated abdominal viscus in not apparent. The small intestine and colon are run 2 times each and no perforation is identified. Exploration of the stomach and duodenum revealed a perforated gastric ulcer at the lesser curavature after the injection of methylene blue down the NGT. The gastrohepatic ligament is taken down using the enseal device and the Pars flaccida approach. The gastric perforation is identified on the midway area of the lesser curvature. The 2 cm perforated ulcer was repaired primarily using 2-0 Vicryl suture and a Iva stitch. Followed by a serosal closure with 3-0 silk sutures. The gastrohepatic ligament is then patched over the primary repair and tacked into position using 3-0 Vicryl sutures. Copious irrigation is carried out in all 4 quadrants of the abdomen. A 10 flat ANDREA drain is placed over the repair. NG tube position is confirmed surgically. The anterior rectus fascia is closed using #1 loop PDS through subcutaneous tissue is copiously irrigated skin is closed with federica. A BACILIO dressing is applied. The drain is sewn into position using 3-0 nylon sutures. Pt tolerated the procedure well and was taken back to ICU in good condition.
[2019-01-26] MEDS ORDERED: Ringers Solution, Lactated 1,000 ML IVC SCH (14:51)
[2019-01-26 16:43] LABS: Opiate Screen,Urine Positive ng/mL (Cutoff=300)
[2019-01-26] MEDS: *HR* Heparin 5,000 UNIT/ML VIAL SQ SCH (17:12)
[2019-01-26] MEDS: Acetaminophen IV 1,000 MG/100 ML INFUS..BTL IVPB SCH ×2 (17:13→23:33)
--- NOTE | 2019-01-26 20:08 | Electrocardiograph Report ---
[address] [address] Test Date: 2019-01-25 Pat Name: Estelle Worthy Department: [id number] Room: Gender: F Frame Trimmer: : [id number] Requested By: Armando Lei Order Number: [id number] Reading MD: Sigrid Subramanian Measurements Intervals Reeds Rate: 118 P: 65 VT: 141 QRS: 56 QRSD: 76 T: 5 QT: 312 QTc: 438 Interpretive Statements Sinus tachycardia Nonspecific ST-T abnormalities Electronically Signed On 01-26-2019 20:06:36 EDT by Sigrid Subramanian
[2019-01-26] MEDS: Piperacillin/Tazobactam 3.375 GM in 0.9 % Sodium Chloride Mini Bag 100 ML IVPB SCH (22:08)
[2019-01-27] MEDS: Pantoprazole 40 MG in 0.9 % Sodium Chloride Mini Bag 100 ML IVC SCH ×5 (00:50→23:54)
[2019-01-27] MEDS ORDERED: Ringers Solution, Lactated 1,000 ML ONE (01:27)
[2019-01-27] MEDS ORDERED: Ringers Solution, Lactated 1,000 ML IVC ONE (01:38)
[2019-01-27 04:18] LABS: Basophils % 0.1 %; Hematocrit 38.2 % (35.3-44.9); Hemoglobin 11.9 g/dL (11.5-15.4); Immature Granulocytes % 0.4 % (0-4); Lymphocytes # 1.5 K/mcL (0.6-4.6); Lymphocytes % 15.6 %; Mean Corpuscular HGB Conc 31.2 g/dL (31.6-35.5); Mean Corpuscular Hemoglobin 29.7 pg (28.0-33.3); Mean Corpuscular Volume 95.3 fL (83.0-100.0); Monocytes # 0.5 K/mcL (0.0-1.3); Monocytes % 5.6 %; Neutrophils # 7.3 K/mcL (1.6-8.9); Platelet Count 214 K/mcL (140-400); Red Blood Count 4.01 M/mcL (3.82-4.97); Segmented Neutrophils % 78.3 %; White Blood Count 9.3 K/mcL (4.3-11.1)
[2019-01-27 04:38] LABS: Alanine Aminotransferase 78 Units/L (7-52); Albumin 3.4 g/dL (3.5-5.7); Albumin/Globulin Ratio 1.3 (1.1-2.2); Alkaline Phosphatase 49 Units/L (34-104); Aspartate Amino Transferase 39 Units/L (13-39); BUN/Creatinine Ratio 19 (6-26); Bilirubin,Total 0.7 mg/dL (0.3-1.0); Blood Urea Nitrogen 13 mg/dL (6-20); Calcium 8.3 mg/dL (8.6-10.3); Carbon Dioxide 20 mEq/L (23-29); Chloride 104 mEq/L (98-107); Globulin 2.6 g/dL (2.4-3.5); Glucose 99 mg/dL (70-105); Osmolality,Calculated 284 (280-300); Potassium 4.4 mEq/L (3.5-5.1); Sodium 137 mEq/L (136-145); eGFR For African Americans > 60 (> 60); eGFR For Non-African Americans > 60 (> 60)
[2019-01-27] MEDS: Acetaminophen IV 1,000 MG/100 ML INFUS..BTL IVPB SCH ×3 (05:59→23:53)
[2019-01-27] MEDS: *HR* Heparin 5,000 UNIT/ML VIAL SQ SCH ×2 (06:41→18:29)
[2019-01-27] MEDS: Piperacillin/Tazobactam 3.375 GM in 0.9 % Sodium Chloride Mini Bag 100 ML IVPB SCH ×3 (08:04→23:55)
[2019-01-27] MEDS ORDERED: Fluconazole 400 MG/200 ML 400 MG/200 ML BAG IVPB SCH ×2 (09:00)
--- NOTE | 2019-01-27 10:52 | AcuteCareSurgery Progress Note ---
Date of Encounter: 01/27/19 Time of Encounter: 10:00 - Assessment and Plan (1) Perforated abdominal viscus Current Visit: Yes Status: Acute POD#1 ex lap for repair perforated gastric ulcer. Maintain NGT and pain control. Add Ativan for anxiety. Patient is stable. Pt may transfer to Med/Surg if OK with hospitalist. (2) Overdose Current Visit: Yes Status: Acute Qualifiers: Qualified Code(s): T50.901A - Poisoning by unspecified drugs, medicaments and biological substances, accidental (unintentional), initial encounter Subjective Patient reports: feels better, still having pain, pain is less, no flatus, no sarbjit wel movement, afebrile Narrative: POD#1 Ex lap for perforated gastric ulcer. Pt reports anxiety. Objective Vital Signs - Last 8 Hours Temp Pulse Resp BP Pulse Ox 01/27/19 10:00 72 12 114/80 98 01/27/19 09:00 69 13 111/77 100 01/27/19 08:00 76 17 117/72 99 01/27/19 07:30 97.9 F 01/27/19 07:00 73 14 107/69 100 01/27/19 06:00 63 18 119/82 100 01/27/19 05:00 66 16 117/79 100 01/27/19 04:04 97.7 F 01/27/19 04:00 65 14 121/59 100 01/27/19 03:30 68 01/27/19 03:00 79 18 109/69 100 Intake and Output 01/26/19 01/27/19 01/27/19 23:59 07:59 15:59 Intake Total 300 / 3522 1500 / 2700 1200 / 2700 Output Total 510 / 1035 305 / 305 Balance -210 / 2487 1195 / 2395 1200 / 2395 Intake: IV Fluids 300 / 3522 1500 / 2700 1200 / 2700 Protonix 40 MG In 0.9 % Sodium 100 / 300 200 / 200 Chloride (Mini-Bag +) 100 ML @ 20 mls/hr IVC .Q5H MANAV Rx#: [id number] Lactated Ringers 1,000 ML @ 125 1000 / 2000 1000 / 2000 mls/hr IVC .Q8H ONE Rx#: [id number] Ofirmev 1,000 mg/100 ml 1,000 100 / 100 200 / 200 mg In 100 ml @ 400 mls/hr IVPB Q6HR MANAV Rx#:[id number] Diflucan Premix 400 MG/200 ML 200 / 200 400 mg In 200 ml @ 200 mls/hr IVPB DAILY MANAV Rx#:[id number] Zosyn 3.375 GM In 0.9 % Sodium 100 / 100 100 / 100 Chloride (Mini-Bag +) 100 ML @ 25 mls/hr IVPB Q8HR MANAV Rx#: [id number] Output: Catheter 405 / 655 220 / 220 Gastric Drainage 0 / 250 50 / 50 Wound Drainage 105 / 105 35 / 35 Right Lower Abdomen 105 / 105 35 / 35 Other: Weight 56.7 kg Blood Glucose* 92 Patient Weight 01/27/19 23:59 Weight 56.7 kg - General physical appearance no distress, moderate pain - Eyes PERRL, normal ocular movement - ENT no congestion, dry mucosa - Neck Neck exam: trachea midline, no venous distension - Respiratory normal respiratory effort, clear to auscultation - Cardiovascular Cardiovascular exam: Present: RRR, JVD - Abdomen Abdomen: Present: bowel sounds present, distended, tender Additional Comments: NGT in place. ANDREA in place with serosanguinous output. - Incision Incision: Present: clean and dry, intact (BACILIO in place. Seal in reinforced and BACILIO is functional again.) - Neurologic CN 2-12 grossly intact, normal coordination - Musculoskeletal normal posture - Psychiatric oriented to time, oriented to person, oriented to place - Labs 01/27/19 04:05 01/27/19 04:05 Diabetes panel 01/27/19 Range/Units 04:05 Sodium 137 (136-145) mEq/L Potassium 4.4 (3.5-5.1) mEq/L Chloride 104 (98-107) mEq/L Carbon Dioxide 20 L (23-29) mEq/L BUN 13 (6-20) mg/dL Creatinine 0.67 (0.60-1.20) mg/dL Glucose 99 (70-105) mg/dL Calcium 8.3 L (8.6-10.3) mg/dL AST 39 (13-39) Units/L ALT 78 H (7-52) Units/L Alkaline Phosphatase 49 (34-104) Units/L Albumin 3.4 L (3.5-5.7) g/dL Calcium panel 01/27/19 Range/Units 04:05 Calcium 8.3 L (8.6-10.3) mg/dL Albumin 3.4 L (3.5-5.7) g/dL Pituitary panel 01/27/19 Range/Units 04:05 Sodium 137 (136-145) mEq/L Potassium 4.4 (3.5-5.1) mEq/L Chloride 104 (98-107) mEq/L Carbon Dioxide 20 L (23-29) mEq/L BUN 13 (6-20) mg/dL Creatinine 0.67 (0.60-1.20) mg/dL Glucose 99 (70-105) mg/dL Calcium 8.3 L (8.6-10.3) mg/dL Adrenal panel 01/27/19 Range/Units 04:05 Sodium 137 (136-145) mEq/L Potassium 4.4 (3.5-5.1) mEq/L Chloride 104 (98-107) mEq/L Carbon Dioxide 20 L (23-29) mEq/L BUN 13 (6-20) mg/dL Creatinine 0.67 (0.60-1.20) mg/dL Glucose 99 (70-105) mg/dL Calcium 8.3 L (8.6-10.3) mg/dL Total Bilirubin 0.7 (0.3-1.0) mg/dL AST 39 (13-39) Units/L ALT 78 H (7-52) Units/L Alkaline Phosphatase 49 (34-104) Units/L Albumin 3.4 L (3.5-5.7) g/dL Consult Discharge Plan - Plan Referrals: NONE,PCP [Primary Care Provider] -
[2019-01-27] MEDS ORDERED: *HR* LORazepam 2 MG/ML VIAL IVP SCH (12:00)
[2019-01-27] MEDS ORDERED: Naloxone 0.4 MG/ML INJ IVP PRN (12:06)
[2019-01-27] MEDS ORDERED: *HR* Promethazine 25 MG/ML VIAL IVP PRN (12:06)
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
[2019-01-27] MEDS: *HR* LORazepam 2 MG/ML VIAL IVP PRN ×2 (16:49→23:54)
[2019-01-27] MEDS: Chloraseptic Spray 177 ML BOTTLE MM PRN (21:44)
[2019-01-28] MEDS: Acetaminophen IV 1,000 MG/100 ML INFUS..BTL IVPB SCH ×3 (05:27→18:45)
[2019-01-28] MEDS: *HR* Heparin 5,000 UNIT/ML VIAL SQ SCH ×2 (05:53→18:10)
[2019-01-28] MEDS: Chloraseptic Spray 177 ML BOTTLE MM PRN ×2 (05:53→13:03)
[2019-01-28] MEDS: Pantoprazole 40 MG in 0.9 % Sodium Chloride Mini Bag 100 ML IVC SCH ×4 (05:54→20:35)
[2019-01-28] MEDS: Piperacillin/Tazobactam 3.375 GM in 0.9 % Sodium Chloride Mini Bag 100 ML IVPB SCH ×2 (10:12→15:48)
[2019-01-28] MEDS: Fluconazole 400 MG/200 ML 400 MG/200 ML BAG IVPB SCH (10:14)
--- NOTE | 2019-01-28 10:18 | AcuteCareSurgery Progress Note ---
Date of Encounter: 01/28/19 Time of Encounter: 08:00 - Assessment and Plan (1) Perforated abdominal viscus Current Visit: Yes Status: Acute POD#2 ex lap for repair perforated gastric ulcer. DC NGT. Clear liquid diet. Increase activity. Possible DC home tomorrow. (2) Overdose Current Visit: Yes Status: Acute Qualifiers: Qualified Code(s): T50.901A - Poisoning by unspecified drugs, medicaments and biological substances, accidental (unintentional), initial encounter Subjective Patient reports: no new complaints, feels better, still having pain, flatus, no bowel movement Narrative: NGT in place Objective Vital Signs - Last 8 Hours Temp Pulse Resp BP Pulse Ox 01/28/19 08:19 98.7 F 84 15 110/72 99 01/28/19 04:24 98.5 F 83 18 112/74 99 Intake and Output 01/27/19 01/28/19 01/28/19 23:59 07:59 15:59 Intake Total 400 / 3100 300 / 400 100 / 400 Output Total 460 / 785 Balance -60 / 2315 280 / 380 100 / 380 Intake: IV Fluids 400 / 3100 300 / 400 100 / 400 Protonix 40 MG In 0.9 % Sodium 200 / 200 100 / 100 Chloride (Mini-Bag +) 100 ML @ 20 mls/hr IVC .Q5H MANAV Rx#: [id number] Ofirmev 1,000 mg/100 ml 1,000 100 / 100 100 / 200 100 / 200 mg In 100 ml @ 400 mls/hr IVPB Q6HR MANAV Rx#:[id number] Zosyn 3.375 GM In 0.9 % Sodium 100 / 100 100 / 100 Chloride (Mini-Bag +) 100 ML @ 25 mls/hr IVPB Q8HR MANAV Rx#: [id number] Output: Catheter 450 / 670 Wound Drainage Right Lower Abdomen Other: Blood Glucose* 79 87 - General physical appearance no distress, moderate pain (as expected post op) - Eyes PERRL, normal ocular movement - ENT no congestion, dry mucosa - Neck Neck exam: trachea midline, no venous distension - Respiratory normal respiratory effort, clear to auscultation - Cardiovascular Cardiovascular exam: Present: RRR. Absent: JVD - Abdomen Abdomen: Present: bowel sounds present, soft, tender Abdominal Tenderness: epigastic Additional Comments: ANDREA in place with moderate serosanguinous output - Incision Incision: Present: clean and dry (BACILIO in place) - Genitourinary normal external genitalia - Neurologic CN 2-12 grossly intact, normal coordination - Musculoskeletal normal posture - Psychiatric oriented to time, oriented to person, oriented to place - Labs 01/28/19 10:04 01/28/19 10:04 Consult Discharge Plan - Plan Referrals: NONE,PCP [Primary Care Provider] -
[2019-01-28 10:27] LABS: Basophils % 0.3 %; Eosinophils # 0.1 K/mcL (0.0-0.6); Eosinophils % 0.7 %; Hematocrit 33.8 % (35.3-44.9); Hemoglobin 10.5 g/dL (11.5-15.4); Immature Granulocytes % 0.4 % (0-4); Lymphocytes # 2.5 K/mcL (0.6-4.6); Lymphocytes % 36.5 %; Mean Corpuscular HGB Conc 31.1 g/dL (31.6-35.5); Mean Corpuscular Hemoglobin 29.6 pg (28.0-33.3); Mean Corpuscular Volume 95.2 fL (83.0-100.0); Monocytes # 0.5 K/mcL (0.0-1.3); Monocytes % 6.8 %; Neutrophils # 3.8 K/mcL (1.6-8.9); Platelet Count 180 K/mcL (140-400); Red Blood Count 3.55 M/mcL (3.82-4.97); Red Cell Distribution Width 14.4 % (11.5-14.5); Segmented Neutrophils % 55.3 %; White Blood Count 6.9 K/mcL (4.3-11.1)
[2019-01-28 10:40] LABS: BUN/Creatinine Ratio 23 (6-26); Blood Urea Nitrogen 14 mg/dL (6-20); Carbon Dioxide 21 mEq/L (23-29); Chloride 104 mEq/L (98-107); Glucose 65 mg/dL (70-105); Magnesium 1.6 mg/dL (1.6-2.6); Osmolality,Calculated 285 (280-300); Potassium 3.7 mEq/L (3.5-5.1); Sodium 138 mEq/L (136-145); eGFR For African Americans > 60 (> 60); eGFR For Non-African Americans > 60 (> 60)
--- NOTE | 2019-01-28 13:21 | Internal Med Progress Note ---
Hospitalist Progress Note - Encounter Date of Encounter: 01/28/19 Time of Encounter: 09:30 - Subjective Interval History: Ms Worthy is currently admitted for acute perforated gastric ulcer. She remains moderate to high risk due to potential for worsening clinical status. Ms Worthy is resting. She tells me the NG and chatman are to come out. Pain is OK at this time. No fever or chills. No cough. - Exam Vitals: Temp Pulse Resp BP Pulse Ox 98.4 F 77 15 110/72 99 01/28/19 12:31 01/28/19 12:31 01/28/19 12:31 01/28/19 12:31 01/28/19 12:31 Exam: General: Alert and oriented. Comfortable at this time. NG still in place. Skin: Normal color, no rash, H: Normocephalic. EENT: EOMI, Mucus membranes dry. Cardiovascular: Normal S1 & S2, not tachycardic Lungs: Normal breath sounds, Decreased. Abdomen: Soft. Tender from OR. No change Extremities: No deformity, no edema Neurological: Normal cognition and motor skills. Moves all extremities Pulses: radial pulses normal +2. Rest of the physical exam is non contributory - Assessment and Plan (1) Perforated gastric ulcer Current Visit: Yes Status: Acute Assessment and Plan: Pt presented with abdominal pain and found to have perforated ulcer. She went to OR and repaired with patch. Further plan per surgery - pt states NG to come out today. (2) Polysubstance abuse Current Visit: Yes Status: Chronic Assessment and Plan: Pt presented with polysubstance OD. Supportive care. No new issues. (3) Hepatitis C Current Visit: Yes Status: Suspected Assessment and Plan: Suspected hep c No acute issue (4) Tobacco abuse Current Visit: Yes Status: Chronic Assessment and Plan: Cessation counselling. - Time Spent with Patient Total time spent is greater than 50% in coordination of care (as documented) at patient's floor/unit and/or counseling patient: Internal Medicine: Result - Labs CBC & Chem 7: 01/28/19 10:04 01/28/19 10:04 Labs: Short CBC 01/28/19 Range/Units 10:04 WBC 6.9 (4.3-11.1) K/mcL Hgb 10.5 L (11.5-15.4) g/dL Hct 33.8 L (35.3-44.9) % Plt Count 180 (140-400) K/mcL Neutrophils # 3.8 (1.6-8.9) K/mcL BMP 01/28/19 10:04 Sodium 138 Potassium 3.7 Chloride 104 Carbon Dioxide 21 L BUN 14 Creatinine 0.61 Glucose 65 L Calcium 8.0 L Consult Discharge Plan - Plan Referrals: NONE,PCP [Primary Care Provider] - (1) Perforated gastric ulcer Qualifiers: Gastric ulcer chronicity: acute Qualified Code(s): K25.1 - Acute gastric ulcer with perforation (3) Hepatitis C Qualifiers: Viral hepatitis chronicity: chronic Hepatic coma status: without hepatic coma Qualified Code(s): B18.2 - Chronic viral hepatitis C
[2019-01-28] MEDS: *HR* LORazepam 2 MG/ML VIAL IVP PRN (15:50)
[2019-01-29] MEDS: Acetaminophen IV 1,000 MG/100 ML INFUS..BTL IVPB SCH ×2 (00:04→06:02)
[2019-01-29] MEDS: Piperacillin/Tazobactam 3.375 GM in 0.9 % Sodium Chloride Mini Bag 100 ML IVPB SCH ×2 (00:06→11:32)
[2019-01-29] MEDS: *HR* LORazepam 2 MG/ML VIAL IVP PRN (00:06)
[2019-01-29] MEDS: Pantoprazole 40 MG in 0.9 % Sodium Chloride Mini Bag 100 ML IVC SCH ×3 (02:15→14:42)
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
[2019-01-29 05:46] LABS: Basophils % 0.5 %; Eosinophils # 0.1 K/mcL (0.0-0.6); Eosinophils % 2.2 %; Hematocrit 32.4 % (35.3-44.9); Hemoglobin 10.3 g/dL (11.5-15.4); Immature Granulocytes % 0.2 % (0-4); Lymphocytes % 48.8 %; Mean Corpuscular HGB Conc 31.8 g/dL (31.6-35.5); Mean Corpuscular Hemoglobin 29.6 pg (28.0-33.3); Mean Corpuscular Volume 93.1 fL (83.0-100.0); Mean Platelet Volume 10.4 fL (9.4-12.4); Monocytes # 0.3 K/mcL (0.0-1.3); Monocytes % 7.8 %; Neutrophils # 1.7 K/mcL (1.6-8.9); Platelet Count 167 K/mcL (140-400); Red Blood Count 3.48 M/mcL (3.82-4.97); Red Cell Distribution Width 14.1 % (11.5-14.5); Segmented Neutrophils % 40.5 %; White Blood Count 4.1 K/mcL (4.3-11.1)
[2019-01-29 05:55] LABS: BUN/Creatinine Ratio 8 (6-26); Blood Urea Nitrogen 5 mg/dL (6-20); Carbon Dioxide 27 mEq/L (23-29); Chloride 105 mEq/L (98-107); Glucose 127 mg/dL (70-105); Osmolality,Calculated 289 (280-300); Potassium 3.3 mEq/L (3.5-5.1); Sodium 140 mEq/L (136-145); eGFR For African Americans > 60 (> 60); eGFR For Non-African Americans > 60 (> 60)
[2019-01-29] MEDS: *HR* Heparin 5,000 UNIT/ML VIAL SQ SCH (05:58)
[2019-01-29] MEDS ORDERED: Acetaminophen 325 MG TABLET PO ONE (06:15)
--- NOTE | 2019-01-29 09:35 | AcuteCareSurgery Progress Note ---
Date of Encounter: 01/29/19 Time of Encounter: 09:00 - Assessment and Plan (1) Intra-abdominal free air of unknown etiology Current Visit: Yes Status: Acute The patient has had successful treatment of perforated gastric ulcer. Remove federica in the midline at 1-2 weeks in the acute care surgery clinic. Subjective Narrative: The patient is seen and evaluated on morning rounds with the acute care surgery team. The patient has had a bizarre sequence of events. She claims that one IV fell out but then was somnolent and unarousable for several hours. She refused urine testing. It appears that she may have used self-administered narcotics. The Scott-Sanchez drain can be removed today. The midline abdominal wound is in good condition. She should return in 1-2 weeks to have her federica removed in the acute care surgery clinic. We would recommend regular diet and discharged from the hospital. We would not recommend using narcotics in her treatment. She is tremendously high risk for overdose Objective Vital Signs - Last 8 Hours Temp Pulse Resp BP Pulse Ox 01/29/19 07:16 98.4 F 71 14 125/86 98 01/29/19 04:27 97.8 F 85 18 126/89 100 Intake and Output 01/28/19 01/29/19 01/29/19 23:59 07:59 15:59 Intake Total 1200 / 1900 200 / 320 120 / 320 Output Total 30 / 820 25 / 35 10 / 35 Balance 1170 / 1080 175 / 285 110 / 285 Intake: IV Fluids 600 / 1300 200 / 200 Protonix 40 MG In 0.9 % Sodium 100 / 400 100 / 100 Chloride (Mini-Bag +) 100 ML @ 20 mls/hr IVC .Q5H MANAV Rx#: [id number] Ofirmev 1,000 mg/100 ml 1,000 200 / 400 100 / 100 mg In 100 ml @ 400 mls/hr IVPB Q6HR MANAV Rx#:[id number] Diflucan Premix 400 MG/200 ML 200 / 200 400 mg In 200 ml @ 200 mls/hr IVPB DAILY MANAV Rx#:[id number] Zosyn 3.375 GM In 0.9 % Sodium 100 / 300 Chloride (Mini-Bag +) 100 ML @ 25 mls/hr IVPB Q8HR MANAV Rx#: [id number] Oral 600 / 600 0 / 120 120 / 120 Output: Wound Drainage Right Lower Abdomen Other: Meal Dinner Breakfast Percent of Meal Consumed 0% 80% # Voids 1 1 1 - General physical appearance well developed, well nourished, chronically ill, other (Agitated) - Respiratory normal respiratory effort, clear to auscultation - Cardiovascular Cardiovascular exam: Present: RRR, no murmurs/rubs/gallops - Abdomen Abdomen: Present: bowel sounds present, tender (Incisional pain only) - Incision Incision: Present: clean and dry - Psychiatric other (Agitated) - Labs 01/29/19 04:48 01/29/19 04:48 Diabetes panel 01/28/19 01/29/19 Range/Units 10:04 04:48 Sodium 138 140 (136-145) mEq/L Potassium 3.7 3.3 L (3.5-5.1) mEq/L Chloride 104 105 (98-107) mEq/L Carbon Dioxide 21 L 27 (23-29) mEq/L BUN 14 5 L (6-20) mg/dL Creatinine 0.61 0.62 (0.60-1.20) mg/dL Glucose 65 L 127 H (70-105) mg/dL Calcium 8.0 L 8.0 L (8.6-10.3) mg/dL Calcium panel 01/28/19 01/29/19 Range/Units 10:04 04:48 Calcium 8.0 L 8.0 L (8.6-10.3) mg/dL Pituitary panel 01/28/19 01/29/19 Range/Units 10:04 04:48 Sodium 138 140 (136-145) mEq/L Potassium 3.7 3.3 L (3.5-5.1) mEq/L Chloride 104 105 (98-107) mEq/L Carbon Dioxide 21 L 27 (23-29) mEq/L BUN 14 5 L (6-20) mg/dL Creatinine 0.61 0.62 (0.60-1.20) mg/dL Glucose 65 L 127 H (70-105) mg/dL Calcium 8.0 L 8.0 L (8.6-10.3) mg/dL Adrenal panel 01/28/19 01/29/19 Range/Units 10:04 04:48 Sodium 138 140 (136-145) mEq/L Potassium 3.7 3.3 L (3.5-5.1) mEq/L Chloride 104 105 (98-107) mEq/L Carbon Dioxide 21 L 27 (23-29) mEq/L BUN 14 5 L (6-20) mg/dL Creatinine 0.61 0.62 (0.60-1.20) mg/dL Glucose 65 L 127 H (70-105) mg/dL Calcium 8.0 L 8.0 L (8.6-10.3) mg/dL Consult Discharge Plan - Plan Referrals: NONE,PCP [Primary Care Provider] -
[2019-01-29] MEDS ORDERED: Ketorolac 30 MG/ML VIAL IM ONE (09:42)
--- NOTE | 2019-01-29 09:49 | Internal Med Progress Note ---
Hospitalist Progress Note - Encounter Date of Encounter: 01/29/19 Time of Encounter: 09:49 - Subjective Interval History: eating breakfast no bm, no gas - Exam Vitals: Temp Pulse Resp BP Pulse Ox 98.4 F 71 14 125/86 98 01/29/19 07:16 01/29/19 07:16 01/29/19 07:16 01/29/19 07:16 01/29/19 07:16 Exam: ANDREA - serosanguinous Vac - xx RLQ ttp, not with stethoscope R arm pain - burning - severe - neck to mid forearm belly mild distended -heel tap - Assessment and Plan (1) Polysubstance abuse Current Visit: Yes Status: Chronic (2) Perforated gastric ulcer Current Visit: Yes Status: Acute (3) Overdose Current Visit: Yes Status: Acute (4) Hepatitis C antibody positive in blood Current Visit: Yes Status: Acute - Time Spent with Patient Total time spent is greater than 50% in coordination of care (as documented) at patient's floor/unit and/or counseling patient: Internal Medicine: Result - Labs CBC & Chem 7: 01/29/19 04:48 01/29/19 04:48 Labs: Short CBC 01/28/19 01/29/19 Range/Units 10:04 04:48 WBC 6.9 4.1 L (4.3-11.1) K/mcL Hgb 10.5 L 10.3 L (11.5-15.4) g/dL Hct 33.8 L 32.4 L (35.3-44.9) % Plt Count 180 167 (140-400) K/mcL Neutrophils # 3.8 1.7 (1.6-8.9) K/mcL BMP 01/28/19 01/29/19 10:04 04:48 Sodium 138 140 Potassium 3.7 3.3 L Chloride 104 105 Carbon Dioxide 21 L 27 BUN 14 5 L Creatinine 0.61 0.62 Glucose 65 L 127 H Calcium 8.0 L 8.0 L Consult Discharge Plan - Plan Referrals: NONE,PCP [Primary Care Provider] - (3) Overdose Qualifiers: Qualified Code(s): T50.901A - Poisoning by unspecified drugs, medicaments and biological substances, accidental (unintentional), initial encounter
[2019-01-29] MEDS: Fluconazole 400 MG/200 ML 400 MG/200 ML BAG IVPB SCH (11:32)
--- NOTE | 2019-01-29 11:33 | Discharge Summary ---
<RealDominicStuart A - Last Filed: 01/29/19 15:12> Orders not resulted at time of discharge: Pending orders 01/26/19 03:10 Culture,Blood [BC] Stat 01/26/19 13:56 Hepatitis C Qnt Reflx Genotype Routine Date of Encounter: 01/29/19 - Discharge Diagnosis (1) Perforated gastric ulcer Status: Acute Qualifiers: Gastric ulcer chronicity: acute Qualified Code(s): K25.1 - Acute gastric ulcer with perforation (2) Polysubstance abuse Status: Chronic (3) Hepatitis C Status: Suspected Qualifiers: Viral hepatitis chronicity: chronic Hepatic coma status: without hepatic coma Qualified Code(s): B18.2 - Chronic viral hepatitis C (4) Tobacco abuse Status: Chronic Hospital course: Ms. Worthy is a 33 year old female - Time Spent with Patient Total time spent providing and/or coordinating discharge services: - Discharge Medications Prescriptions: New Acetaminophen [8 Hour] 650 mg PO Q6HR PRN 7 Days #28 tablet.er PRN Reason: Pain Ibuprofen [Ibu] 600 mg PO Q6HR PRN 7 Days #28 tablet PRN Reason: Pain Home Medications: Acetaminophen [8 Hour] 650 mg PO Q6HR PRN 7 Days #28 tablet.er 01/29/19 [Rx] Ibuprofen [Ibu] 600 mg PO Q6HR PRN 7 Days #28 tablet 01/29/19 [Rx] Allergies/Adverse Reactions: Allergy/AdvReac Type Severity Reaction Status Date / Time No Known Allergies Allergy Verified 01/26/19 12:39 Date of admission: 01/26/19 03:08 Primary care physician: PCP NONE Consults: 01/26/19 02:22 Consult to Surgery [CONS] Stat Consulting Provider: Acute Care Surgery Reason for Consult: abdominal perforation Time Notified: 02:24 Call Completed: Yes - Constitutional Vitals: Temp Pulse Resp BP Pulse Ox 98.2 F 84 17 128/88 98 01/29/19 13:20 01/29/19 13:20 01/29/19 13:20 01/29/19 13:20 01/29/19 13:20 - Patient Status Disposition: Home, Self-Care Condition: Fair - Discharge Instructions Follow Up With: Ethan Rivers MD [Partnered Physician] - (Informed patient to call the office for a follow up) NONE,PCP [Primary Care Provider] - Additional Instructions: Follow-up with acute care surgery in 1-2 weeks for staple removal Use Metamucil or Benefiber supplements daily until resolution of constipation - Attending Attestation I examined this patient and my medical decision-making was reviewed with the Resident Physician on 01/29/19. I agree with the documented findings, disposition and treatment plan as described except to the extent set forth below. Ms Worthy has been admitted for polysubstance abuse and perforated gastric ulcer. She is tolerating diet. Drain is out. She has been cleared for discharge by the surgery team. Exam: Alert. Moves all extremities. Neck supple. EOMI. Mucus membranes dry. Heart reg and not tachy. No wheeze Plan D/C home today with follow up with surgery. D/C time 38min <Vasile Womack S - Last Filed: 01/29/19 15:52> - NOTES TO OUTPATIENT PROVIDER Notes to Outpatient Provider: ExLap on 01/26 found perforated gastric ulcer. Needs outpt f/u with surgeon for staple removal. Need to address substance use issues as outpatient. Hep C positive, quantitative PCR with reflex genotype sent. Orders not resulted at time of discharge: Pending orders 01/26/19 03:10 Culture,Blood [BC] Stat 01/26/19 13:56 Hepatitis C Qnt Reflx Genotype Routine Date of Encounter: 01/29/19 Time of Encounter: 11:31 - Discharge Diagnosis (1) Perforated gastric ulcer Priority: Primary Status: Acute Assessment and Plan: S/p laparoscopy with repair, POD#3. ANDREA drain in place, scant serosanguinous dr carty. Vaccuum dressing in place over midline incisional wound, appears clean and dry with no drainage. Patient eating regular diet without issues, No BM, no flatus as yet. Mild distension on exam, no peritoneal signs Reporting severe pain - holding narcotics as there is suspicion her boyfriend has been bringing her narcotics she has been injecting while inpatient D/c home today after removal of ANDREA drain. continue regular diet, add metamucil or benefiber to treat constipation Acetaminophen and Ibuprophen for pain control, will [place] pt on necessity of avoiding higher doses than prescribed, and taking with large glass of water given her recent Hx of gastric ulcer. (2) Polysubstance abuse Priority: Secondary Status: Chronic Assessment and Plan: Harm reduction discussed with Pt: * test dose when changes (new dealer/label) * don't lick needles * bottled water for diluent, avoid juice/soda/contaminated water * take-home narcan Discussion with drug cessation today revealed that patient has court ordered drug management care already arranged. We had an extensive discussion about drug cessation, and harm reduction. Patient stated repeatedly "I know what I need to do I just need to do it," she does seem motivated to quit using drugs at this time. Patient states there are still significant psychosocial pressures at home to continue using, including family members and boyfriend that are still using drugs. States that "half my family is from heroin" (3) Overdose Priority: Secondary Status: Acute Assessment and Plan: patient without s/s withdrawal at this time. Discussed harm reduction as stated above Qualifiers: Qualified Code(s): T50.901A - Poisoning by unspecified drugs, medicaments and biological substances, accidental (unintentional), initial encounter (4) Hepatitis C antibody positive in blood Priority: Secondary Status: Acute Assessment and Plan: Follow-up with primary care provider in 2 weeks to discuss results of hep C quantitative RNA PCR , Avoid excessive doses of Tylenol, as discussed at the bedside today Hospital course: Ms. Worthy is a 33 year old female who presents to the hospital for overdose and was found to have severe abdominal pain and distention, imaging subsequently showed that she had large amounts of air in the peritoneum. After brief period of initial stabilization, patient was taken to surgery. Laparoscopic repair of perforated gastric ulcer was performed. patient is returning back to baseline, eating a regular diet. There is concern that her boyfriend may have brought in narcotics which were injected through her antecubital IV. Patient has not received narcotic pain medication since, and has complained of increased abdominal pain, distention, right arm pain since removal of the IV. She does not have any peritoneal signs, and is afebrile. ANDREA drain was removed this morning, and her surgeon is in agreement with the plan to send her home to self-care today. - Time Spent with Patient Total time spent providing and/or coordinating discharge services: Date of admission: 01/26/19 03:08 Primary care physician: PCP NONE Consults: 01/26/19 02:22 Consult to Surgery [CONS] Stat Consulting Provider: Acute Care Surgery Reason for Consult: abdominal perforation Time Notified: 02:24 Call Completed: Yes Discharging clinician: Vasile Womack Anticipated date of discharge: 01/29/19 - Constitutional Vitals: Temp Pulse Resp BP Pulse Ox 98.4 F 71 14 125/86 98 01/29/19 07:16 01/29/19 07:16 01/29/19 07:16 01/29/19 07:16 01/29/19 07:16 Exam: Gen: Awake but sleepy, no acute distress, well-nourished, Head: Normocephalic, atraumatic Eyes: EOMI, no scleral icterus ENT: Mucous membranes moist, CV: S1-S2 present, regular at a rate of approximately 70, no murmurs rubs or gallops Pulm: CTAB, not tachypneic, no respiratory distress, no increased work of breathing Abd: Soft, RLQ tender to palpation, RLQ not ttp with pressure from stethoscope, mildly distended, no rigidity, no rebound or guarding. EXT: Grossly intact motor strength in all 4 extremities, no lower extremity edema, no distal cyanosis or pallor Skin: Warm, dry, intact, no rashes or lesions noted Neuro: Cranial nerves II-XII grossly intact, no focal nurologic deficits Psych: normal mood and affect, Answers questions with intact judgement, appropriate insight, and linear thought - Patient Status Functional capacity at discharge: independent ambulation Overall status at discharge: patient is progressing back to baseline - Diet and Activity Activity: increase activity as tolerated Diet: advance to your usual diet (High-fiber diet)
[2019-01-29 14:19] VITALS: BP 128/88
[2019-01-30 08:52] LABS: HCV Quant Interpretation DETECTED (Not Detected); HCV Quant Log 5.89 log IU/mL
[2019-02-02 10:12] LABS: HCV Genotype by Sequencing 1A OR 1B
== END 2019-01-29 16:14 | disposition home or self-care (01) | DRG 793 ==
LOC: EMEROOARM 22:45 → SUATTDRO 01-26 03:08 → ICNU 01-26 03:08 → 3ANU 01-27 12:00
PROVIDERS: ADMIT Internal Medicine; ATTEND Internal Medicine